=== PATIENT | male | born 1955 ===

== ENCOUNTER → 2020-12-07 09:44 | Outpatient (BNVA) | payer MEDICARE, MEDICAID, SELFPAY | PROVIDERS: PCP Physician Assistant Medical; Visit Provider Internal Medicine Pulmonary Disease | DX: J44.9 Chronic obstructive pulmonary disease, unspecified (principal); G47.33 Obstructive sleep apnea (adult) (pediatric); Z99.81 Dependence on supplemental oxygen | CPT/HCPCS: 99212 ==

== ENCOUNTER → 2021-04-12 09:56 | Outpatient (BNVA) | payer MEDICARE, MEDICAID, SELFPAY | PROVIDERS: PCP Physician Assistant Medical; Visit Provider Internal Medicine Pulmonary Disease | DX: G47.33 Obstructive sleep apnea (adult) (pediatric) (principal); J44.9 Chronic obstructive pulmonary disease, unspecified; Z99.81 Dependence on supplemental oxygen | CPT/HCPCS: 99212 ==

== ENCOUNTER → 2021-09-06 10:27 | Outpatient (BNVA) | payer MEDICARE, MEDICAID, SELFPAY | PROVIDERS: PCP Physician Assistant Medical; Visit Provider Internal Medicine Pulmonary Disease | DX: J44.9 Chronic obstructive pulmonary disease, unspecified (principal); G47.33 Obstructive sleep apnea (adult) (pediatric); Z99.81 Dependence on supplemental oxygen | CPT/HCPCS: 99212 ==

== ENCOUNTER → 2022-03-06 13:01 | Outpatient (BNVA) | payer MEDICARE, MEDICAID, SELFPAY | PROVIDERS: PCP Physician Assistant Medical; Visit Provider Internal Medicine Pulmonary Disease | DX: J44.9 Chronic obstructive pulmonary disease, unspecified (principal); G47.33 Obstructive sleep apnea (adult) (pediatric); Z99.81 Dependence on supplemental oxygen | CPT/HCPCS: 99212 ==

== ENCOUNTER 2022-10-21 09:21 | Emergency (ER) | payer MEDICARE, MEDICAID, SELFPAY ==
--- NOTE | ~2022-10-21 | US_ITS ---
EXAMINATION: US SCROTUM CLINICAL INFORMATION: Left testicular pain. COMPARISON: None available. TECHNIQUE: A sonogram of the scrotum was performed assessing galeana-scale appearance and color Doppler flow. Spectral Doppler analysis of the arterial and venous flow were performed in the testes bilaterally. FINDINGS: RIGHT: Right testicle measures 4.5 x 3 x 3.5 cm, volume 24.8 mL. No focal testicular parenchymal lesions are visualized. Spectral Doppler analysis of the arterial and venous flow is normal in the right testis. Right epididymal head is normal in size. Simple right epididymal head cysts measuring 0.5 and 0.4 cm. No right hydrocele or varicocele is seen. Right epididymal Doppler flow is normal. LEFT: Left testicle measures 4.8 x 2.7 x 3.4 cm, volume 23.3 mL. No focal testicular parenchymal lesions are visualized. Spectral Doppler analysis of the arterial and venous flow is normal in the left testis. Left epididymal head is normal in size. No left hydrocele or varicocele is seen. Left epididymal Doppler flow is normal. Significantly thickened and edematous scrotum without significantly increased Doppler detectable vascular flow. US/US scrotum IMPRESSION: 1. Significantly thickened and edematous scrotum without significantly increased Doppler detectable vascular flow. Findings are nonspecific and may represent an infectious or inflammatory process. 2. Simple right epididymal head cysts measuring 0.5 and 0.4 cm.
--- NOTE | ~2022-10-21 | US_ITS ---
EXAMINATION: US SCROTUM CLINICAL INFORMATION: Left testicular pain. COMPARISON: None available. TECHNIQUE: A sonogram of the scrotum was performed assessing galeana-scale appearance and color Doppler flow. Spectral Doppler analysis of the arterial and venous flow were performed in the testes bilaterally. FINDINGS: RIGHT: Right testicle measures 4.5 x 3 x 3.5 cm, volume 24.8 mL. No focal testicular parenchymal lesions are visualized. Spectral Doppler analysis of the arterial and venous flow is normal in the right testis. Right epididymal head is normal in size. Simple right epididymal head cysts measuring 0.5 and 0.4 cm. No right hydrocele or varicocele is seen. Right epididymal Doppler flow is normal. LEFT: Left testicle measures 4.8 x 2.7 x 3.4 cm, volume 23.3 mL. No focal testicular parenchymal lesions are visualized. Spectral Doppler analysis of the arterial and venous flow is normal in the left testis. Left epididymal head is normal in size. No left hydrocele or varicocele is seen. Left epididymal Doppler flow is normal. Significantly thickened and edematous scrotum without significantly increased Doppler detectable vascular flow. US/US scrotum doppler IMPRESSION: 1. Significantly thickened and edematous scrotum without significantly increased Doppler detectable vascular flow. Findings are nonspecific and may represent an infectious or inflammatory process. 2. Simple right epididymal head cysts measuring 0.5 and 0.4 cm.
--- NOTE | ~2022-10-21 | CT_ITS ---
EXAMINATION: CT ABDOMEN AND PELVIS WITH CONTRAST CLINICAL INFORMATION: Peroneal cellulitis, rule out necrotizing fasciitis COMPARISON: None available. TECHNIQUE: Multidetector volumetric images were obtained from the superior aspect of the liver through the pubic symphysis following administration 100 mL of Omnipaque 350 intravenous contrast. Sagittal and coronal reformatted images were obtained on the technologist's workstation. Oral contrast: No This CT examination was performed using dose optimization techniques as appropriate, variously including the following: *Automated exposure control *Adjustment of mA and/or kV according to patient size (this includes techniques or standardized protocols for targeted exams where dose is matched to indication/reason for exam; i.e. extremities or head) *Use of iterative reconstruction technique DLP: 2053 mGy-cm FINDINGS: LUNG BASES: The visualized lung bases are unremarkable. LIVER, GALLBLADDER, AND BILIARY TREE: Low attenuation lesion in the left lobe of liver. Unable to characterize study. Measures 1 cm. Gallstones in the gallbladder PANCREAS: There is some mild soft tissue stranding around the pancreatic head but I suspect this is due to the technique of the scan. No Suspicious fluid collection SPLEEN: Unremarkable. ADRENAL GLANDS: Unremarkable. KIDNEYS AND URETERS: The kidneys are normal in size, shape, and attenuation. No hydronephrosis, hydroureter, or calculi seen. No perinephric stranding. BLADDER: Unremarkable. GASTROINTESTINAL TRACT: The bowel pattern is felt to be nonobstructing. The appendix is within normal limits. ABDOMINAL WALL: No significant hernia is appreciated. LYMPH NODES: Normal. VASCULAR: Unremarkable. PELVIC VISCERA: Unremarkable. OSSEOUS STRUCTURES: Degenerative changes in the spine. No acute compression injury. No obvious lesion. CT/CT abdomen pelvis w IV con IMPRESSION: Inferior most cut is to the region of the rectum and may not include the area in question, the perineum in this large patient. Findings are described above. No acute finding in the abdomen pelvis. Other findings are as described above Fleischner guidelines were followed.
[2022-10-21 09:26] VITALS: BP 150/70; PULSE 82; RESP 16; TEMP 36.4; O2SAT 97; BMI 63.2
[2022-10-21 09:50] LABS: MANUAL DIFF FLAG NO
[2022-10-21 09:53] LABS: Basophils Percent Auto 0.3 % (0-2); Eosinophils Absolute Auto 0.3 X10*3/uL (0.0-0.4); Eosinophils Percent Auto 2.1 % (0-4); Hematocrit 40.2 % (42.0-52.0); Hemoglobin 12.3 g/dl (14.0-18.0); Imm Gran Abs Auto 0.09 X10*3/uL (0.00-0.03); Imm Gran Pct Auto 0.7 % (0.0-0.4); Lymphocytes Absolute Auto 1.9 X10*3/uL (1.2-4.9); Lymphocytes Percent Auto 15.9 % (20-40); Mean Corpuscular HGB Conc 30.6 g/dl (31.0-36.0); Mean Corpuscular Hemoglobin 24.7 pg (27.0-33.0); Mean Corpuscular Volume 80.7 fL (80.0-98.0); Mean Platelet Volume 8.8 fL (9.4-12.4); Monocytes Absolute Auto 0.7 X10*3/uL (0.1-1.2); Neutrophils Absolute Auto 9.1 x10*3/uL (2.0-8.3); Platelet Count 301 X10*3/uL (160-400); Red Blood Count 4.98 X10*6/uL (4.60-5.80); Red Cell Distribution Width 17.2 % (11.0-16.0); White Blood Count 12.2 X10*3/uL (4.8-10.8)
[2022-10-21 10:10] LABS: Anion Gap 14 (12-20); Blood Urea Nitrogen 21 mg/dL (9-16); Calcium 9.2 mg/dL (8.4-10.2); Carbon Dioxide 29 mmol/L (22-29); Chloride 102 mmol/L (96-108); Creatinine Clr Calc Pharmacy 138.8; Estimated Glomerular Filt Rate > 60; Glucose Random 139 mg/dL (60-115); Potassium 3.9 mmol/L (3.3-5.1); Sodium 141 mmol/L (135-145)
--- NOTE | 2022-10-21 10:20 | PC.NURSE ---
Patient was sitting on a bench when two of the wood pieces came together and pinch his scrotum, patient scrotum swollen at this time but patient denies pain to the area.
--- NOTE | 2022-10-21 10:24 | ED_ITS ---
HPI - Male Genitourinary General Chief complaint: Urogenital-Male Stated complaint: testicle inj Time Seen by Provider: 10/21/22 10:01 Source: patient Mode of arrival: ambulatory Limitations: no limitations History of Present Illness HPI Narrative: 67-year-old male came in for evaluation of swelling of the testicle. Patient was sitting on the front bench with the loose wood board hit his testicle when he is trying to seat. Complaining of swelling of the testicle, no pain. Related Data Home Medications Medication Instructions Recorded Confirmed albuterol sulfate 2.5 mg/3 mL mg inhalation 04/12/21 (0.083 %) solution for nebulization atorvastatin 40 mg tablet 40 mg PO DAILY 04/12/21 blood sugar diagnostic (FreeStyle #10 ea 04/12/21 Lite Strips) diltiazem HCl 300 mg 300 mg PO DAILY 04/12/21 capsule,extended release 24 hr flecainide 150 mg tablet 150 mg PO BID 04/12/21 glipizide 10 mg tablet, extended 10 mg PO DAILY 04/12/21 release 24 hr hydralazine 25 mg tablet 25 mg PO TID 04/12/21 insulin aspart U-100 100 unit/mL subcut 04/12/21 (3 mL) subcutaneous pen (Novolog FlexPen U-100 Insulin aspart) insulin glargine 100 unit/mL (3 unit subcut 04/12/21 mL) subcutaneous pen (Basaglar KwikPen U-100 Insulin) lancets 28 gauge (FreeStyle #100 ea 04/12/21 Lancets) metformin 850 mg tablet 850 mg PO TID 04/12/21 pantoprazole 40 mg tablet,delayed 40 mg PO DAILY 04/12/21 release pen needle, diabetic 31 gauge x #1,200 ea 04/12/2109/12 (BD Ultra-Fine Short Pen Needle) pregabalin 150 mg capsule 150 mg PO BID 04/12/21 valsartan 160 mg tablet 160 mg PO DAILY 04/12/21 valsartan 320 mg tablet 320 mg PO DAILY 04/12/21 empagliflozin 10 mg tablet 10 mg PO DAILY 03/06/22 (Jardiance) magnesium oxide 400 mg (241.3 mg 400 mg PO BID 03/06/22 magnesium) tablet Previous Rx's Medication Instructions Recorded Ventolin HFA 90 mcg/actuation 2 puff inhalation Q6H PRN 12/07/20 aerosol inhaler (albuterol sulfate) shortness of breath or wheezing #3 ea furosemide 40 mg tablet (Lasix) 40 mg PO BID 30 days #60 tabs 12/07/20 Breo Ellipta 100 mcg-25 mcg/dose 1 ea inhalation DAILY #1 ea 04/11/21 powder for inhalation (fluticasone furoate-vilanterol) doxycycline monohydrate 100 mg 100 mg PO BID #20 caps 10/21/22 capsule Allergies Allergy/AdvReac Type Severity Reaction Status Date / Time ipratropium Allergy Unknown Unknown Verified 03/06/22 13:10 dogs Allergy Unknown Unknown Uncoded 12/07/20 10:01 Review of Systems Review of Systems: All other systems are reviewed and are negative Constitutional: Reports as per HPI and Reports no additional constitutional complaints Eyes: Reports as per HPI and Reports no additional eye complaints Reports system reviewed and no additional complaints, except as documented Cardiovascular: Reports as per HPI and Reports no additional cardiovascular complaints Respiratory: Reports as per HPI and Reports no additional respiratory complaints Gastrointestinal: Reports as per HPI and Reports no additional gastrointestinal complaints Genitourinary: Reports no additional female genitourinary complaints Musculoskeletal: Reports no additional musculoskeletal complaints Skin/Breast: Reports system reviewed and no additional complaints, except as docu Psychiatric: Reports no additional psychiatric complaints Endocrine: Reports no additional endocrine complaints Hematologic/Lymphatic: Reports no additional hematologic/lymphatic complaints Allergic/Immunologic: Reports no additional allergic/immunologic complaints Reports system reviewed and no additional complaints, except as documented and Reports Abnormal speech present [facility] Social History Social History Alcohol intake: never Smoked in Last 30 Days: No Use of substances other than those prescribed or required for medical reasons: No Advance Directives: No Advance Directives Information Provided: No Physical Exam Vital Signs: Vital Signs: Last Vital Signs Temp 98.2 F 10/21/22 15:55 Pulse 69 10/21/22 15:55 Resp 16 10/21/22 15:55 BP 143/80 H 10/21/22 15:55 Pulse Ox 97 10/21/22 15:55 O2 Del Method Nasal Cannula 10/21/22 15:55 O2 Flow Rate 2 10/21/22 15:55 Oxygen Flow Rate 2 10/21/22 09:26 BMI result Body Mass Index 63.2 Vital signs have been reviewed as appeared to be correct. Blood pressure normal. Heart rate normal. Respiration rate normal. Temperature normal. Oxygen saturation normal. Appearance: Alert. Oriented X3. No acute distress. Head: Normal external exam. Normocephalic. Atraumatic. No Sadler signs noted. No raccoon eyes noted Eyes: PERRLA. EOMI. Conjunctiva and sclera normal. Eyelids normal. ENT: TM's Normal. Pharynx normal. Uvula midline. Moist mucous membranes. No trismus noted. No drooling noted. No muffled voice noted. Neck: Normal inspection. Neck supple. FROM. No adenopathy. Thyroid Normal. No meningeal signs. No neck mass noted. CVS: Normal heart rate and rhythm. Heart sound normal. No murmurs noted. Pulses normal throughout. Respiratory: No respiratory distress. Painless inspiration. Breath sounds normal. No wheezes/rales/rhonchi noted. Chest nontender. No accessory muscle usage noted or decreased air movement noted. Abdomen: Soft and nontender. Bowel sounds normal in all 4 quadrants. No distention noted. No organomegaly noted. No visible injury noted. : Swelling of the scrotum, no testicular tenderness. No cellulitis to the perineal area. Back: No CVA tenderness. Full range of motion noted. Skin: Skin warm and dry. Normal skin color. Normal skin turgor. No rashes/lesions/lacerations noted. Extremities: No lower extremity edema. Extremities exhibit normal range of motion. Extremities nontender. Neuro: Oriented X 3. Cranial nerve exam: II-XII are grossly intact No motor deficit. No sensory deficit. Reflexes normal. Course Reevaluation(s) Reevaluation #1: Redness and swelling of the scrotum after trauma to the scrotum, possible infected hematoma and cellulitis, LRINEC score is 4 will start the patient on doxycycline. Time: 15:16 Medications Administered Discontinued Medications Generic Name Dose Route Start Last Admin Trade Name Freq PRN Reason Stop Dose Admin Sodium Chloride 1,000 mls @ 999 mls/hr 10/21/22 12:46 10/21/22 13:33 Ns IV 10/21/22 13:46 999 mls/hr .Q1H1M ONE Administration Levofloxacin 750 mg in 150 mls @ 100 mls/hr 10/21/22 12:50 10/21/22 13:31 Levaquin IV 10/21/22 14:19 100 mls/hr ONCE ONE Administration Iohexol 100 ml 10/21/22 14:02 10/21/22 14:02 Iohexol 350 Mg/Ml 100 Ml Infus..Btl IV 10/21/22 14:03 100 ml ONCE ONE Administration Medical Decision Making Differential Diagnosis Differential Diagnoses: The differential diagnosis associated with the presentation includes (Scrotal cellulitis, scrotal hematoma, Cuca's gangrene, scrotal abscess, electrolytes abnormalities, severe anemia.) Admission/Observation Consideration of admission/observation: Escalation of care including admission/observation considered Lab Data MDM Lab Attestation statement: I reviewed the patient's lab results. 10/21/22 09:45 10/21/22 09:46 Labs: Lab Results 10/21/22 10/21/22 10/21/22 Range/Units 09:45 09:46 12:14 WBC 12.2 H (4.8-10.8) X10*3/uL RBC 4.98 (4.60-5.80) X10*6/uL Hgb 12.3 L (14.0-18.0) g/dl Hct 40.2 L (42.0-52.0) % MCV 80.7 (80.0-98.0) fL MCH 24.7 L (27.0-33.0) pg MCHC 30.6 L (31.0-36.0) g/dl RDW 17.2 H (11.0-16.0) % Plt Count 301 (160-400) X10*3/uL MPV 8.8 L (9.4-12.4) fL Immature Gran % (Auto) 0.7 H (0.0-0.4) % Neut % (Auto) 75.0 H (45-73) % Lymph % (Auto) 15.9 L (20-40) % Crawford % (Auto) 6.0 (2-11) % Eos % (Auto) 2.1 (0-4) % Baso % (Auto) 0.3 (0-2) % Lymph # (Auto) 1.9 (1.2-4.9) X10*3/uL Crawford # (Auto) 0.7 (0.1-1.2) X10*3/uL Eos # (Auto) 0.3 (0.0-0.4) X10*3/uL Baso # (Auto) 0.0 (0.0-0.2) X10*3/uL Abs Immat Gran (auto) 0.09 H (0.00-0.03) X10*3/uL Absolute Neuts (auto) 9.1 H (2.0-8.3) x10*3/uL Absolute Nucleated RBC 0.000 (0.0-0.012) X10*3/uL Nucleated RBC % (auto) 0.0 (0.0-0.2) /100WBC Sodium 141 (135-145) mmol/L Potassium 3.9 (3.3-5.1) mmol/L Chloride 102 (96-108) mmol/L Carbon Dioxide 29 (22-29) mmol/L Anion Gap 14 (12-20) BUN 21 H (9-16) mg/dL Creatinine 0.85 (0.5-1.4) mg/dL Estim Creat Clear Calc 138.8 Estimated GFR > 60 Random Glucose 139 H (60-115) mg/dL Lactic Acid (0.5-2.0) mmol/L Calcium 9.2 (8.4-10.2) mg/dL C-Reactive Protein 4.77 H (< or = 0.50) mg/dL Urine Color Yellow Urine Appearance Cloudy Urine pH >= 9.0 (5.0-9.0) Ur Specific [place] >= 1.030 H (1.005-1.025) Urine Protein 30 (1+) H (Neg-Trace) mg/dL Urine Glucose (UA) 500 H (Negative) mg/dL Urine Ketones Negative (Negative) mg/dL Urine Blood Negative (Negative) Urine Nitrite Positive H (Negative) Ur Leukocyte Esterase Moderate (2+) H (Negative) Urine RBC 0-2 (0-2) /HPF Urine WBC 21-50 H (0-5) /HPF Ur Squamous Epith Cells 0-2 (0-2) /HPF Urine Bacteria 4+ (None Seen) Hyaline Casts 3-5 (0-2) /LPF 10/21/22 Range/Units 13:18 WBC (4.8-10.8) X10*3/uL RBC (4.60-5.80) X10*6/uL Hgb (14.0-18.0) g/dl Hct (42.0-52.0) % MCV (80.0-98.0) fL MCH (27.0-33.0) pg MCHC (31.0-36.0) g/dl RDW (11.0-16.0) % Plt Count (160-400) X10*3/uL MPV (9.4-12.4) fL Immature Gran % (Auto) (0.0-0.4) % Neut % (Auto) (45-73) % Lymph % (Auto) (20-40) % Crawford % (Auto) (2-11) % Eos % (Auto) (0-4) % Baso % (Auto) (0-2) % Lymph # (Auto) (1.2-4.9) X10*3/uL Crawford # (Auto) (0.1-1.2) X10*3/uL Eos # (Auto) (0.0-0.4) X10*3/uL Baso # (Auto) (0.0-0.2) X10*3/uL Abs Immat Gran (auto) (0.00-0.03) X10*3/uL Absolute Neuts (auto) (2.0-8.3) x10*3/uL Absolute Nucleated RBC (0.0-0.012) X10*3/uL Nucleated RBC % (auto) (0.0-0.2) /100WBC Sodium (135-145) mmol/L Potassium (3.3-5.1) mmol/L Chloride (96-108) mmol/L Carbon Dioxide (22-29) mmol/L Anion Gap (12-20) BUN (9-16) mg/dL Creatinine (0.5-1.4) mg/dL Estim Creat Clear Calc Estimated GFR Random Glucose (60-115) mg/dL Lactic Acid 0.9 (0.5-2.0) mmol/L Calcium (8.4-10.2) mg/dL C-Reactive Protein (< or = 0.50) mg/dL Urine Color Urine Appearance Urine pH (5.0-9.0) Ur Specific [place] (1.005-1.025) Urine Protein (Neg-Trace) mg/dL Urine Glucose (UA) (Negative) mg/dL Urine Ketones (Negative) mg/dL Urine Blood (Negative) Urine Nitrite (Negative) Ur Leukocyte Esterase (Negative) Urine RBC (0-2) /HPF Urine WBC (0-5) /HPF Ur Squamous Epith Cells (0-2) /HPF Urine Bacteria (None Seen) Hyaline Casts (0-2) /LPF Independent Interpretation I performed an independent interpretation of an: CT Scan (Abdomen and pelvis: No acute pathology.) Radiology Impression Discussion of test interpretation with radiology: I have reviewed the radiologist's reading. Discharge Plan Discharge Clinical Impression: Cellulitis Patient Disposition: Home, Self-Care Instructions: Cellulitis (ED) Prescriptions: New doxycycline monohydrate 100 mg capsule 100 mg PO BID Qty: 20 0RF No Action Breo Ellipta 100-25 mcg/dose blister with device 1 ea inhalation DAILY Qty: 1 3RF furosemide [Lasix] 40 mg tablet 40 mg PO BID 30 Days Qty: 60 6RF albuterol sulfate [Ventolin HFA] 90 mcg/actuation HFA aerosol inhaler 2 puff inhalation Q6H PRN (Reason: shortness of breath or wheezing) Qty: 3 1RF flecainide 150 mg tablet 150 mg PO BID pantoprazole 40 mg tablet,delayed release (DR/EC) 40 mg PO DAILY Basaglar KwikPen U-100 Insulin 100 unit/mL (3 mL) insulin pen subcut valsartan 320 mg tablet 320 mg PO DAILY pregabalin 150 mg capsule 150 mg PO BID glipizide 10 mg tablet extended release 24hr 10 mg PO DAILY (DME) lancets [FreeStyle Lancets] 28 gauge misc See Rx Instructions topical TID Qty: 100 Rx Instructions: As directed diltiazem HCl 300 mg capsule,extended release 24hr 300 mg PO DAILY (DME) FreeStyle Lite Strips Strip See Rx Instructions Not Applicable TID Qty: 10 Rx Instructions: As directed hydralazine 25 mg tablet 25 mg PO TID metformin 850 mg tablet 850 mg PO TID atorvastatin 40 mg tablet 40 mg PO DAILY insulin aspart U-100 [Novolog FlexPen U-100 Insulin] 100 unit/mL (3 mL) insulin pen subcut (DME) pen needle, diabetic [BD Ultra-Fine Short Pen Needle] 31 gauge x 5/16 needle See Rx Instructions subcut .MEDSUPPLY Qty: 1200 Rx Instructions: As directed albuterol sulfate 2.5 mg /3 mL (0.083 %) solution for nebulization inhalation valsartan 160 mg tablet 160 mg PO DAILY magnesium oxide 400 mg (241.3 mg magnesium) tablet 400 mg PO BID Jardiance 10 mg tablet 10 mg PO DAILY Referrals: Jm Roca PA [Primary Care Provider] -
[2022-10-21 12:22] LABS: Appearance Urine Cloudy; Color Urine Yellow; Glucose Urine UA 500 mg/dL (Negative); Leukocyte Esterase Urine Moderate (2+) (Negative); Nitrite Urine Positive (Negative); PH >= 9.0 (5.0-9.0); Specific Gravity - Urine >= 1.030 (1.005-1.025); UMIC TRIGGER UACC YES; Urine Blood Negative (Negative); Urine Ketones Negative (Negative); Urine Protein 30 (1+) mg/dL (Neg-Trace)
[2022-10-21 12:24] LABS: Bacteria Urine 4+ (None Seen); RBC Urine 0-2 /HPF (0-2); Squamous Epithelial Cell Urine 0-2 /HPF (0-2); UACC Culture Trigger YES; WBC Urine 21-50 /HPF (0-5)
[2022-10-21] MEDS: levoFLOXacin/D5W 750 MG/150 ML PIGGYBACK 100 MG IV (13:31)
[2022-10-21] MEDS: 0.9 % Sodium Chloride 1,000 ML 999 ML IV ×2 (13:33→16:06)
[2022-10-21 13:34] LABS: Lactic Acid 0.9 mmol/L (0.5-2.0)
--- NOTE | 2022-10-21 13:45 | PC.NURSE ---
Patient went to CT, able to ambulate independently accompanied by janitorial tech.
[2022-10-21] MEDS: iohexoL 350 MG/ML 100 ML INFUS..BTL IV (14:02)
[2022-10-21 14:51] VITALS: BP 149/77; PULSE 64; RESP 20; TEMP 36.5; O2SAT 97
[2022-10-21 15:51] LABS: C Reactive Protein 4.77 mg/dL (< or = 0.50)
[2022-10-21 15:55] VITALS: BP 143/80; PULSE 69; RESP 16; TEMP 36.8; O2SAT 97
--- NOTE | 2022-10-21 15:56 | MHC.EDTECH ---
THIS PCT ASSUMED CARE OF PT AT 1500 ,VITALS SIGN TAKEN PT SITTING UP AT THE SIDE OF BED ,NO ISSUES .
[2022-10-21] MEDS: Doxycycline Monohydrate 100 MG CAPSULE PO (16:17)
--- NOTE | 2022-10-21 16:22 | PC.NURSE ---
Provider okay'ed patient note getting full dose of IV fluids.
--- NOTE | 2022-10-25 09:58 | ED_ITS ---
HPI - Male Genitourinary General Chief complaint: Urogenital-Male Stated complaint: testicle inj Time Seen by Provider: 10/21/22 10:01 Source: patient Mode of arrival: ambulatory Limitations: no limitations Related Data Home Medications Medication Instructions Recorded Confirmed albuterol sulfate 2.5 mg/3 mL mg inhalation 04/12/21 (0.083 %) solution for nebulization atorvastatin 40 mg tablet 40 mg PO DAILY 04/12/21 blood sugar diagnostic (FreeStyle #10 ea 04/12/21 Lite Strips) diltiazem HCl 300 mg 300 mg PO DAILY 04/12/21 capsule,extended release 24 hr flecainide 150 mg tablet 150 mg PO BID 04/12/21 glipizide 10 mg tablet, extended 10 mg PO DAILY 04/12/21 release 24 hr hydralazine 25 mg tablet 25 mg PO TID 04/12/21 insulin aspart U-100 100 unit/mL subcut 04/12/21 (3 mL) subcutaneous pen (Novolog FlexPen U-100 Insulin aspart) insulin glargine 100 unit/mL (3 unit subcut 04/12/21 mL) subcutaneous pen (Basaglar KwikPen U-100 Insulin) lancets 28 gauge (FreeStyle #100 ea 04/12/21 Lancets) metformin 850 mg tablet 850 mg PO TID 04/12/21 pantoprazole 40 mg tablet,delayed 40 mg PO DAILY 04/12/21 release pen needle, diabetic 31 gauge x #1,200 ea 04/12/21 5/16 (BD Ultra-Fine Short Pen Needle) pregabalin 150 mg capsule 150 mg PO BID 04/12/21 valsartan 160 mg tablet 160 mg PO DAILY 04/12/21 valsartan 320 mg tablet 320 mg PO DAILY 04/12/21 empagliflozin 10 mg tablet 10 mg PO DAILY 03/06/22 (Jardiance) magnesium oxide 400 mg (241.3 mg 400 mg PO BID 03/06/22 magnesium) tablet Previous Rx's Medication Instructions Recorded Ventolin HFA 90 mcg/actuation 2 puff inhalation Q6H PRN 12/07/20 aerosol inhaler (albuterol sulfate) shortness of breath or wheezing #3 ea furosemide 40 mg tablet (Lasix) 40 mg PO BID 30 days #60 tabs 12/07/20 Breo Ellipta 100 mcg-25 mcg/dose 1 ea inhalation DAILY #1 ea 04/11/21 powder for inhalation (fluticasone furoate-vilanterol) doxycycline monohydrate 100 mg 100 mg PO BID #20 caps 10/21/22 capsule cephalexin 500 mg tablet 500 mg PO Q6H 10 days #40 tabs 10/25/22 Allergies Allergy/AdvReac Type Severity Reaction Status Date / Time ipratropium Allergy Unknown Unknown Verified 03/06/22 13:10 dogs Allergy Unknown Unknown Uncoded 12/07/20 10:01 [facility] Social History Social History Alcohol intake: never Smoked in Last 30 Days: No Use of substances other than those prescribed or required for medical reasons: No Advance Directives: No Advance Directives Information Provided: No Physical Exam Vital Signs: Vital Signs: Last Vital Signs Temp 98.2 F 10/21/22 15:55 Pulse 69 10/21/22 15:55 Resp 16 10/21/22 15:55 BP 143/80 H 10/21/22 15:55 Pulse Ox 97 10/21/22 15:55 O2 Del Method Nasal Cannula 10/21/22 15:55 O2 Flow Rate 2 10/21/22 15:55 Oxygen Flow Rate 2 10/21/22 09:26 BMI result Body Mass Index 63.2 Course Reevaluation(s) Reevaluation #1: Positive culture her susceptible to Keflex, patient on doxycycline, sent Keflex to patient's pharmacy, spoke to patient on the phone he tells me that his testicular redness, pain and swelling has not improved despite antibiotics encouraged him to come in for IV antibiotics. Medications Administered Discontinued Medications Generic Name Dose Route Start Last Admin Trade Name Freq PRN Reason Stop Dose Admin Doxycycline Monohydrate 100 mg 10/21/22 16:06 10/21/22 16:17 Doxycycline Monohydrate 100 Mg Capsule PO 10/21/22 16:07 100 mg ONCE ONE Administration Sodium Chloride 1,000 mls @ 999 mls/hr 10/21/22 12:46 10/21/22 16:05 Ns IV 10/21/22 13:46 Infused .Q1H1M ONE Infusion Sodium Chloride 1,000 mls @ 999 mls/hr 10/21/22 12:50 10/21/22 16:21 Ns IV 10/21/22 13:50 0 mls/hr .Q1H1M ONE Infusion Levofloxacin 750 mg in 150 mls @ 100 mls/hr 10/21/22 12:50 10/21/22 16:06 Levaquin IV 10/21/22 14:19 Infused ONCE ONE Infusion Iohexol 100 ml 10/21/22 14:02 10/21/22 14:02 Iohexol 350 Mg/Ml 100 Ml Infus..Btl IV 10/21/22 14:03 100 ml ONCE ONE Administration Medical Decision Making Lab Data 10/21/22 09:45 10/21/22 09:46 Labs: Lab Results 10/21/22 10/21/22 10/21/22 Range/Units 09:45 09:46 12:14 WBC 12.2 H (4.8-10.8) X10*3/uL RBC 4.98 (4.60-5.80) X10*6/uL Hgb 12.3 L (14.0-18.0) g/dl Hct 40.2 L (42.0-52.0) % MCV 80.7 (80.0-98.0) fL MCH 24.7 L (27.0-33.0) pg MCHC 30.6 L (31.0-36.0) g/dl RDW 17.2 H (11.0-16.0) % Plt Count 301 (160-400) X10*3/uL MPV 8.8 L (9.4-12.4) fL Immature Gran % (Auto) 0.7 H (0.0-0.4) % Neut % (Auto) 75.0 H (45-73) % Lymph % (Auto) 15.9 L (20-40) % [place] % (Auto) 6.0 (2-11) % Eos % (Auto) 2.1 (0-4) % Baso % (Auto) 0.3 (0-2) % Lymph # (Auto) 1.9 (1.2-4.9) X10*3/uL [place] # (Auto) 0.7 (0.1-1.2) X10*3/uL Eos # (Auto) 0.3 (0.0-0.4) X10*3/uL Baso # (Auto) 0.0 (0.0-0.2) X10*3/uL Abs Immat Gran (auto) 0.09 H (0.00-0.03) X10*3/uL Absolute Neuts (auto) 9.1 H (2.0-8.3) x10*3/uL Absolute Nucleated RBC 0.000 (0.0-0.012) X10*3/uL Nucleated RBC % (auto) 0.0 (0.0-0.2) /100WBC Sodium 141 (135-145) mmol/L Potassium 3.9 (3.3-5.1) mmol/L Chloride 102 (96-108) mmol/L Carbon Dioxide 29 (22-29) mmol/L Anion Gap 14 (12-20) BUN 21 H (9-16) mg/dL Creatinine 0.85 (0.5-1.4) mg/dL Estim Creat Clear Calc 138.8 Estimated GFR > 60 Random Glucose 139 H (60-115) mg/dL Lactic Acid (0.5-2.0) mmol/L Calcium 9.2 (8.4-10.2) mg/dL C-Reactive Protein 4.77 H (< or = 0.50) mg/dL Urine Color Yellow Urine Appearance Cloudy Urine pH >= 9.0 (5.0-9.0) Ur Specific [place] >= 1.030 H (1.005-1.025) Urine Protein 30 (1+) H (Neg-Trace) mg/dL Urine Glucose (UA) 500 H (Negative) mg/dL Urine Ketones Negative (Negative) mg/dL Urine Blood Negative (Negative) Urine Nitrite Positive H (Negative) Ur Leukocyte Esterase Moderate (2+) H (Negative) Urine RBC 0-2 (0-2) /HPF Urine WBC 21-50 H (0-5) /HPF Ur Squamous Epith Cells 0-2 (0-2) /HPF Urine Bacteria 4+ (None Seen) Hyaline Casts 3-5 (0-2) /LPF // Range/Units 13:18 WBC (4.8-10.8) X10*3/uL RBC (4.60-5.80) X10*6/uL Hgb (14.0-18.0) g/dl Hct (42.0-52.0) % MCV (80.0-98.0) fL MCH (27.0-33.0) pg MCHC (31.0-36.0) g/dl RDW (11.0-16.0) % Plt Count (160-400) X10*3/uL MPV (9.4-12.4) fL Immature Gran % (Auto) (0.0-0.4) % Neut % (Auto) (45-73) % Lymph % (Auto) (20-40) % [place] % (Auto) (2-11) % Eos % (Auto) (0-4) % Baso % (Auto) (0-2) % Lymph # (Auto) (1.2-4.9) X10*3/uL [place] # (Auto) (0.1-1.2) X10*3/uL Eos # (Auto) (0.0-0.4) X10*3/uL Baso # (Auto) (0.0-0.2) X10*3/uL Abs Immat Gran (auto) (0.00-0.03) X10*3/uL Absolute Neuts (auto) (2.0-8.3) x10*3/uL Absolute Nucleated RBC (0.0-0.012) X10*3/uL Nucleated RBC % (auto) (0.0-0.2) /100WBC Sodium (135-145) mmol/L Potassium (3.3-5.1) mmol/L Chloride (96-108) mmol/L Carbon Dioxide (22-29) mmol/L Anion Gap (12-20) BUN (9-16) mg/dL Creatinine (0.5-1.4) mg/dL Estim Creat Clear Calc Estimated GFR Random Glucose (60-115) mg/dL Lactic Acid 0.9 (0.5-2.0) mmol/L Calcium (8.4-10.2) mg/dL C-Reactive Protein (< or = 0.50) mg/dL Urine Color Urine Appearance Urine pH (5.0-9.0) Ur Specific [place] (1.005-1.025) Urine Protein (Neg-Trace) mg/dL Urine Glucose (UA) (Negative) mg/dL Urine Ketones (Negative) mg/dL Urine Blood (Negative) Urine Nitrite (Negative) Ur Leukocyte Esterase (Negative) Urine RBC (0-2) /HPF Urine WBC (0-5) /HPF Ur Squamous Epith Cells (0-2) /HPF Urine Bacteria (None Seen) Hyaline Casts (0-2) /LPF Discharge Plan Discharge Clinical Impression: Cellulitis Patient Disposition: Home, Self-Care Instructions: Cellulitis (ED) Prescriptions: New doxycycline monohydrate 100 mg capsule 100 mg PO BID Qty: 20 0RF cephalexin 500 mg tablet 500 mg PO Q6H 10 Days Qty: 40 0RF No Action Breo Ellipta 100-25 mcg/dose blister with device 1 ea inhalation DAILY Qty: 1 3RF furosemide [Lasix] 40 mg tablet 40 mg PO BID 30 Days Qty: 60 6RF albuterol sulfate [Ventolin HFA] 90 mcg/actuation HFA aerosol inhaler 2 puff inhalation Q6H PRN (Reason: shortness of breath or wheezing) Qty: 3 1RF flecainide 150 mg tablet 150 mg PO BID pantoprazole 40 mg tablet,delayed release (DR/EC) 40 mg PO DAILY Basaglar KwikPen U-100 Insulin 100 unit/mL (3 mL) insulin pen subcut valsartan 320 mg tablet 320 mg PO DAILY pregabalin 150 mg capsule 150 mg PO BID glipizide 10 mg tablet extended release 24hr 10 mg PO DAILY (DME) lancets [FreeStyle Lancets] 28 gauge misc See Rx Instructions topical TID Qty: 100 Rx Instructions: As directed diltiazem HCl 300 mg capsule,extended release 24hr 300 mg PO DAILY (DME) FreeStyle Lite Strips Strip See Rx Instructions Not Applicable TID Qty: 10 Rx Instructions: As directed hydralazine 25 mg tablet 25 mg PO TID metformin 850 mg tablet 850 mg PO TID atorvastatin 40 mg tablet 40 mg PO DAILY insulin aspart U-100 [Novolog FlexPen U-100 Insulin] 100 unit/mL (3 mL) insulin pen subcut (DME) pen needle, diabetic [BD Ultra-Fine Short Pen Needle] 31 gauge x 5/16 needle See Rx Instructions subcut .MEDSUPPLY Qty: 1200 Rx Instructions: As directed albuterol sulfate 2.5 mg /3 mL (0.083 %) solution for nebulization inhalation valsartan 160 mg tablet 160 mg PO DAILY magnesium oxide 400 mg (241.3 mg magnesium) tablet 400 mg PO BID Jardiance 10 mg tablet 10 mg PO DAILY Referrals: Jm Roca PA [Primary Care Provider] - Interventions: ED Discharge Assessment Last Done: 10/21/22 16:22 Discharge Date/Time: 10/21/22 16:23
== END 2022-10-21 16:23 | disposition home or self-care (01) ==
PROVIDERS: Emergency Provider Emergency Medicine; PCP Physician Assistant Medical
DX: N49.2 Inflammatory disorders of scrotum (principal); N50.812 Left testicular pain; N50.811 Right testicular pain; N39.0 Urinary tract infection, site not specified; B96.4 Proteus (mirabilis) (morganii) as the cause of diseases classified elsewhere
CPT/HCPCS: 36415; 74177; 76870; 80048; 81001; 83605; 85025; 86140; 87040; 87086; 87088; 87186; 93975; 96361; 96365; 99284; J1956; Q9967

== ENCOUNTER 2022-10-28 06:58 | Inpatient (IN) | payer MEDICARE, MEDICAID, SELFPAY ==
[2022-10-28 07:16] VITALS: BP 128/59; PULSE 95; RESP 20; TEMP 37; O2SAT 97; BMI 61.7
--- NOTE | 2022-10-28 07:18 | ED.GENADULT ---
HPI - General Adult General Chief complaint: General Medical Stated complaint: cellulitis, uti Time Seen by Provider: 10/28/22 07:15 Source: patient, RN notes reviewed and old records reviewed Mode of arrival: ambulatory History of Present Illness HPI narrative: 67-year-old male with a past medical history of RITA on CPAP, COPD on 2 L NC baseline, DM, scrotal cellulitis currently being treated with Doxycycline and Keflex since 10/21/2022, presenting to the ED complaining of persistent/worsening scrotal swelling and erythema. Reports compliance with previously prescribed antibiotics. Patient was evaluated in our ED on 10/21 and 10/25 for similar symptoms, had labs, scrotal ultrasound, and CT scan. States was instructed by his VNA to return to the ED for IV antibiotics. Reports difficulty urinating secondary to swelling. Denies fever, chills, drainage from area, abdominal pain Onset (ago): week(s) Related Data Home Medications Medication Instructions Recorded Confirmed albuterol sulfate 2.5 mg/3 mL 2.5 mg inhalation Q6H PRN 04/12/21 10/28/22 (0.083 %) solution for nebulization Shortness Of Breath Or Wheezing atorvastatin 40 mg tablet 40 mg PO BEDTIME 04/12/21 10/28/22 blood sugar diagnostic (FreeStyle #10 ea 04/12/21 Lite Strips) diltiazem HCl 300 mg 300 mg PO DAILY 04/12/21 10/28/22 capsule,extended release 24 hr glipizide 10 mg tablet, extended 10 mg PO DAILY 04/12/21 10/28/22 release 24 hr hydralazine 25 mg tablet 25 mg PO TID 04/12/21 10/28/22 insulin aspart U-100 100 unit/mL 1 sliding scale dose subcut TIDAC 04/12/21 10/28/22 (3 mL) subcutaneous pen (Novolog FlexPen U-100 Insulin aspart) insulin glargine 100 unit/mL (3 64 unit subcut BID 04/12/21 10/28/22 mL) subcutaneous pen (Basaglar KwikPen U-100 Insulin) lancets 28 gauge (FreeStyle #100 ea 04/12/21 Lancets) metformin 850 mg tablet 850 mg PO TID 04/12/21 10/28/22 pantoprazole 40 mg tablet,delayed 40 mg PO DAILY@0630 04/12/21 10/28/22 release pen needle, diabetic 31 gauge x #1,200 ea 04/12/2109/12 (BD Ultra-Fine Short Pen Needle) pregabalin 150 mg capsule 150 mg PO BID 04/12/21 10/28/22 valsartan 320 mg tablet 320 mg PO DAILY 04/12/21 10/28/22 empagliflozin 10 mg tablet 10 mg PO DAILY 03/06/22 10/28/22 (Jardiance) furosemide 40 mg tablet (Lasix) 40 mg PO BID@0900,1700 10/28/22 10/28/22 magnesium oxide 400 mg PO DAILY 10/28/22 10/28/22 sitagliptin phosphate 25 mg tablet 25 mg PO DAILY 10/28/22 10/28/22 (Januvia) Previous Rx's Medication Instructions Recorded doxycycline monohydrate 100 mg 100 mg PO BID #20 caps 10/21/22 capsule cephalexin 500 mg tablet 500 mg PO Q6H 10 days #40 tabs 10/25/22 Allergies Allergy/AdvReac Type Severity Reaction Status Date / Time ipratropium Allergy Unknown Unknown Verified 10/28/22 07:27 Review of Systems Review of Systems: Constitutional: No Fever, No Chills, No Fatigue, No Malaise ENT/Mouth: No Ear Pain, No Nasal Congestion, No Hoarseness, No sore throat, No Rhinorrhea, No Swallowing Difficulty Eyes: No Eye Pain, No Swelling, No Redness, No Vision Changes Cardiovascular: No Chest Pain, No SOB, No Edema, No Palpitations Respiratory: No Cough, No Sputum, No Dyspnea Gastrointestinal: No Nausea, No Vomiting, No Diarrhea, No Constipation, No Abdominal pain Genitourinary: +scrotal swelling, No Dysuria, No Urinary Frequency, No Hematuria, No Urinary Incontinence/retention, No Flank Pain Musculoskeletal: No joint pain, No Myalgias, No Joint Swelling Skin: No Skin Lesions, No rash Neuro: No Weakness, No Dizziness, No Headache Yes all other systems are reviewed and are negative Constitutional: Constitutional: Reports as per [facility] Past Medical History Attestation statement: The following information was validated with the patient. Source: old records reviewed Social History Social History Household Members: None Housing: Apartment Do you presently have visiting nurse or other home services: Yes Alcohol intake: never Patient Tobacco Use Status: Never used Tobacco Substance Use Type: Marijuana Physical Exam ED Vital Signs: Vital Signs - 24 hr 10/28/22 07:16 Temperature 98.6 F Pulse Rate 95 Respiratory Rate 20 Blood Pressure 128/59 L Pulse Oximetry 97 Oxygen Delivery Method Nasal Cannula BMI result Body Mass Index 61.7 Const General: cooperative, healthy appearing and no acute distress Orientation/consciousness: patient oriented x3 Limitations: no limitations HENMT Head: Yes normal to inspection and Yes atraumatic Ears: hearing grossly normal bilaterally General nose exam: Normal external nose present Face and sinus: Yes normal facial exam Eyes General: appearance normal, both eyes and all related structures EOM: EOMs intact bilaterally Neck Neck: Yes normal visual inspection and Yes no meningeal signs Resp Effort & Inspection: normal respiratory effort and no respiratory distress Auscultation: diminished lung sounds bilateral in the lower lung mcginn[place] Cardio Rate: regular rate Heart sounds: S1 normal heart sound present and S2 normal heart sound present GI Inspection: Yes normal to inspection Palpation (GI): Soft to palpation, nontender, no guarding and not rigid Other: No crepitus General: Yes no CVA tenderness Scrotum: erythematous diffuse and scrotal swelling bilateral Testes: no testicular tenderness Back/Spine/Pelvis Back: no CVA tenderness Skin Other: Appropriately healing wound to right heel without surrounding erythema, no drainage Rashes: no rashes Neuro General: patient oriented x3, tone normal and no meningeal signs Gait exam (Neuro): Normal gait present Extrem General: Yes normal to inspection Course Course Course Narrative: -no leukocytosis. ESR 48. Labs otherwise reassuring XR chest 1V IMPRESSION: Mild pulmonary edema. > no overt evidence of CHF, will give 40 mg of IV Lasix 1104--CT pelvis w IV con IMPRESSION: No definitive scrotal skin thickening identified by today's cross-sectional imaging. There is some high density material dependently within the scrotum which is nonspecific. Further evaluation can be obtained with follow-up scrotal ultrasound as clinically indicated. > will consult Urology, Dr. Perez > recommended hospitalist admission for IV antibiotics. Will admit to hospitalist for further management Medications Administered Generic Name Dose Route Start Last Admin Trade Name Freq PRN Reason Stop Dose Admin Enoxaparin Sodium 40 mg 10/28/22 13:30 10/28/22 14:03 Enoxaparin Sodium 40 Mg/0.4 Ml Syringe SUBCUT 40 mg Q24H SRIDHAR Administration Furosemide 40 mg 10/28/22 17:00 10/28/22 16:31 Furosemide 40 Mg Tablet PO 40 mg BID@0900,1700 SRIDHAR Administration Protocol Hydralazine HCl 25 mg 10/28/22 15:00 10/28/22 16:31 Hydralazine Hcl 25 Mg Tablet PO 25 mg TID [facility] Administration Protocol Piperacillin Sod/Tazobactam 100 mls @ 200 mls/hr 10/28/22 13:30 10/28/22 14:43 Sod 4.5 gm/ Sodium Chloride IV Infused Q6H SRIDHAR Infusion Insulin Human Lispro 0 unit 10/28/22 16:30 10/28/22 16:34 Insulin Lispro 100 Unit/Ml 3 Ml Vial SUBCUT 2 unit QIDACHS [facility] Administration Protocol Metformin HCl 850 mg 10/28/22 15:00 10/28/22 16:34 Metformin Hcl 850 Mg Tablet PO 850 mg TID [facility] Administration Sodium Chloride 3 ml 10/28/22 16:00 10/28/22 16:38 0.9 % Sodium Chloride Flush 3 Ml Syringe IVFLUSH Not Given QSHIFT SRIDHAR Discontinued Medications Generic Name Dose Route Start Last Admin Trade Name Freq PRN Reason Stop Dose Admin Furosemide 40 mg 10/28/22 11:05 10/28/22 11:57 Furosemide 40 Mg/4 Ml Vial IVPUSH 10/28/22 11:06 40 mg ONCE ONE Administration Protocol Levofloxacin 750 mg in 150 mls @ 100 mls/hr 10/28/22 07:37 10/28/22 10:29 Levaquin IV 10/28/22 09:06 Infused ONCE ONE Infusion Vancomycin HCl 2,000 mg in 500 mls @ 250 mls/hr 10/28/22 13:29 10/28/22 14:45 Vancomycin/Ns IV 10/28/22 15:28 250 mls/hr ONCE ONE Administration Iohexol 85 ml 10/28/22 09:46 10/28/22 09:47 Iohexol 350 Mg/Ml 100 Ml Infus..Btl IV 10/28/22 09:47 85 ml ONCE ONE Administration Medical Decision Making Medical Decision Making MDM Narrative: 67-year-old male with a past medical history of RITA on CPAP, COPD on 2 L NC baseline, DM, scrotal cellulitis currently being treated with Doxycycline and Keflex since 10/21/2022, presenting to the ED complaining of persistent/worsening scrotal swelling and erythema. On exam vital signs stable, NAD, nontoxic appearing, abdomen soft/nontender, diffuse scrotal swelling with erythema noted, no warmth. No lesions, drainage, fluctuance or crepitus. Concern for continued cellulitis vs ?Scrotal abscess vs UTI. Lower suspicion for Cuca's gangrene, appendicitis/diverticulitis or hernia Plan: Labs, lactic/blood cultures, UA, CT, IV Levaquin Please refer to course for remaining clinical decision making, interpretation of labs/imaging results, and discussions with consultants and/or family members. Differential Diagnosis Differential Diagnoses: The differential diagnosis associated with the presentation includes As above Admission/Observation Consideration of admission/observation: Escalation of care including admission/observation considered Consult Healthcare Provider Management of the patient was discussed with: Hospitalist and Parach[employer]er (urology Dr. Perez) Lab Data MDM Lab Attestation statement: I reviewed the patient's lab results. 10/28/22 08:21 10/28/22 08:15 Labs: Lab Results 10/28/22 10/28/22 10/28/22 Range/Units 08:13 08:13 08:15 WBC (4.8-10.8) X10*3/uL RBC (4.60-5.80) X10*6/uL Hgb (14.0-18.0) g/dl Hct (42.0-52.0) % MCV (80.0-98.0) fL MCH (27.0-33.0) pg MCHC (31.0-36.0) g/dl RDW (11.0-16.0) % Plt Count (160-400) X10*3/uL MPV (9.4-12.4) fL Immature Gran % (Auto) (0.0-0.4) % Neut % (Auto) (45-73) % Lymph % (Auto) (20-40) % [place] % (Auto) (2-11) % Eos % (Auto) (0-4) % Baso % (Auto) (0-2) % Lymph # (Auto) (1.2-4.9) X10*3/uL [place] # (Auto) (0.1-1.2) X10*3/uL Eos # (Auto) (0.0-0.4) X10*3/uL Baso # (Auto) (0.0-0.2) X10*3/uL Abs Immat Gran (auto) (0.00-0.03) X10*3/uL Absolute Neuts (auto) (2.0-8.3) x10*3/uL Absolute Nucleated RBC (0.0-0.012) X10*3/uL Nucleated RBC % (auto) (0.0-0.2) /100WBC ESR 48 H (0-15) MM/HR PT (10.0-13.1) SEC INR (0.9-1.1) Sodium 140 (135-145) mmol/L Potassium 4.6 (3.3-5.1) mmol/L Chloride 101 (96-108) mmol/L Carbon Dioxide 30 H (22-29) mmol/L Anion Gap 14 (12-20) BUN 23 H (9-16) mg/dL Creatinine 1.05 (0.5-1.4) mg/dL Estim Creat Clear Calc 110.7 Estimated GFR > 60 Random Glucose 140 H (60-115) mg/dL Lactic Acid (0.5-2.0) mmol/L Calcium 9.5 (8.4-10.2) mg/dL Magnesium 2.5 (1.6-2.6) mg/dL Total Bilirubin 0.7 (0.0-1.0) mg/dL Direct Bilirubin 0.2 (0.0-0.5) mg/dL AST 14 (5-37) U/L ALT 18 (0-40) U/L Alkaline Phosphatase 121 H (39-117) U/L B-Natriuretic Peptide 16 (<100) pg/mL Total Protein 8.3 H (6.5-8.0) g/dL Albumin 3.7 (3.5-5.0) g/dL 10/28/22 10/28/22 10/28/22 Range/Units 08:15 08:20 08:21 WBC 11.2 H (4.8-10.8) X10*3/uL RBC 5.46 (4.60-5.80) X10*6/uL Hgb 13.5 L (14.0-18.0) g/dl Hct 44.1 (42.0-52.0) % MCV 80.8 (80.0-98.0) fL MCH 24.7 L (27.0-33.0) pg MCHC 30.6 L (31.0-36.0) g/dl RDW 17.9 H (11.0-16.0) % Plt Count 330 (160-400) X10*3/uL MPV 9.1 L (9.4-12.4) fL Immature Gran % (Auto) 0.5 H (0.0-0.4) % Neut % (Auto) 78.9 H (45-73) % Lymph % (Auto) 13.5 L (20-40) % [place] % (Auto) 5.3 (2-11) % Eos % (Auto) 1.4 (0-4) % Baso % (Auto) 0.4 (0-2) % Lymph # (Auto) 1.5 (1.2-4.9) X10*3/uL [place] # (Auto) 0.6 (0.1-1.2) X10*3/uL Eos # (Auto) 0.2 (0.0-0.4) X10*3/uL Baso # (Auto) 0.0 (0.0-0.2) X10*3/uL Abs Immat Gran (auto) 0.06 H (0.00-0.03) X10*3/uL Absolute Neuts (auto) 8.9 H (2.0-8.3) x10*3/uL Absolute Nucleated RBC 0.000 (0.0-0.012) X10*3/uL Nucleated RBC % (auto) 0.0 (0.0-0.2) /100WBC ESR (0-15) MM/HR PT 11.9 (10.0-13.1) SEC INR 1.0 (0.9-1.1) Sodium (135-145) mmol/L Potassium (3.3-5.1) mmol/L Chloride (96-108) mmol/L Carbon Dioxide (22-29) mmol/L Anion Gap (12-20) BUN (9-16) mg/dL Creatinine (0.5-1.4) mg/dL Estim Creat Clear Calc Estimated GFR Random Glucose (60-115) mg/dL Lactic Acid 1.6 (0.5-2.0) mmol/L Calcium (8.4-10.2) mg/dL Magnesium (1.6-2.6) mg/dL Total Bilirubin (0.0-1.0) mg/dL Direct Bilirubin (0.0-0.5) mg/dL AST (5-37) U/L ALT (0-40) U/L Alkaline Phosphatase (39-117) U/L B-Natriuretic Peptide (<100) pg/mL Total Protein (6.5-8.0) g/dL Albumin (3.5-5.0) g/dL Radiology Impression Discussion of test interpretation with radiology: I have reviewed the radiologist's reading. External Record Review External record reviewed: Inpatient record, Office record, Outpatient record, Prior outpatient labs, Prior outpatient radiology, Primary care record and Outside ED record Tests considered The following testing was considered but not selected: As above repeat US Prescription Management I considered prescription management with: Pain Medication and Antibiotic Chronic Conditions Patient?s care impacted by: Other (COPD, RITA on CPAP) Discharge Plan Discharge Clinical Impression: Cellulitis of scrotum Patient Disposition: Admitted As Inpatient Interventions: Admission Worksheet (ED) Last Done: 10/28/22 15:25 Discharge Date/Time: 10/28/22 15:26
[2022-10-28] MEDS: levoFLOXacin/D5W 750 MG/150 ML PIGGYBACK 100 MG IV (08:31)
--- NOTE | 2022-10-28 08:42 | PC.NURSE ---
20 g IV inserted in RAC, meds given per order. pt resting quietly no apparent distress
[2022-10-28] MEDS: iohexoL 350 MG/ML 100 ML INFUS..BTL 85 ML IV (09:47)
[2022-10-28] MEDS: Furosemide 40 MG/4 ML VIAL IVPUSH (11:57)
--- NOTE | 2022-10-28 12:08 | PC.NURSE ---
pt given recliner for comfort. IV Lasix given as ordered. Pharmacy currently at bedside.
--- NOTE | 2022-10-28 12:28 | PHA.MEDREC ---
Pharmacy Consult ? Medication Reconciliation Pharmacy has completed the medication reconciliation. Spoke to patient to confirm meds.
--- NOTE | 2022-10-28 13:31 | PM.IMHP ---
History of Present Illness Date of Service: 10/28/22 Chief Complaint: scrotal cellulitis 67-year-old male with a past medical history of RITA on CPAP, COPD on 2 L NC baseline, DM, scrotal cellulitis currently being treated with Doxycycline and Keflex since 10/21/2022, presenting to the ED complaining of persistent/worsening scrotal swelling and erythema.? Reports compliance with previously prescribed antibiotics.? Patient was evaluated in our ED on 10/21 and 10/25 for similar symptoms, had labs, scrotal ultrasound, and CT scan.? States was instructed by his VNA to return to the ED for IV antibiotics.? Reports difficulty urinating secondary to swelling.? Pt states getting worse despite oral antibiotics. Will be admitted to general medical floor having failed outpatient therapies Review of Systems Review of Systems: Denies chest pain Denies shortness of breath Denies nausea vomiting diarrhea Denies fever chills PMFSH Social History Alcohol intake: never Smoked in Last 30 Days: No Use of substances other than those prescribed or required for medical reasons: No Advance Directives: No Meds Allergies Allergy/AdvReac Type Severity Reaction Status Date / Time ipratropium Allergy Unknown Unknown Verified 10/28/22 07:27 Active Medications: Current Medications Acetaminophen (Acetaminophen 325 Mg Tablet) 650 mg PO Q6H PRN PRN Reason: Pain, Mild (Pain Scale 1-3) Albuterol Sulfate (Albuterol Sulfate (0.083%) 2.5 Mg/3 Ml Vial.Neb) 2.5 mg INHALE Q6H PRN PRN Reason: Shortness Of Breath Or Wheezing Atorvastatin Calcium (Atorvastatin Calcium 40 Mg Tablet) 40 mg PO BEDTIME [facility] Diltiazem HCl (Diltiazem Hcl Cd 300 Mg Cap.Er.24h) 300 mg PO DAILY [facility]; Protocol Empagliflozin (Empagliflozin 10 Mg Tablet) 10 mg PO DAILY [facility] Enoxaparin Sodium (Enoxaparin Sodium 40 Mg/0.4 Ml Syringe) 40 mg SUBCUT Q24H [facility] Furosemide (Furosemide 40 Mg Tablet) 40 mg PO BID@0900,1700 [facility]; Protocol Glipizide (Glipizide Xl 10 Mg Tab.Er.24) 10 mg PO DAILY [facility] Hydralazine HCl (Hydralazine Hcl 25 Mg Tablet) 25 mg PO TID [facility]; Protocol Insulin Glargine (Insulin Glargine,Hum.Rec.Anlog 100 Unit/Ml 10 Ml Vial) 64 unit SUBCUT BID [facility] Magnesium Oxide (Magnesium Oxide 400 Mg Tablet) 400 mg PO DAILY [facility] Metformin HCl (Metformin Hcl 850 Mg Tablet) 850 mg PO TID [facility] Non-Formulary Medication (Pantoprazole) 40 mg PO DAILY@0630 [facility] Ondansetron HCl (Ondansetron Hcl 4 Mg/2 Ml Vial) 4 mg IVPUSH Q8H PRN PRN Reason: Nausea and Vomiting Pharmacy Consult (Consult Rx Perform Med Rec) 1 each MISCELLANE ONCE PRN PRN Reason: Consult order Pregabalin (Pregabalin 150 Mg Capsule) 150 mg PO BID [facility] Sitagliptin Phosphate (Sitagliptin Phosphate 25 Mg Tablet) 25 mg PO DAILY [facility] Sodium Chloride (0.9 % Sodium Chloride Flush 3 Ml Syringe) 3 ml IVFLUSH QSHIFT [facility] Valsartan (Valsartan 320 Mg Tablet) 320 mg PO DAILY [facility]; Protocol Home Medications Medication Instructions Recorded Confirmed Last Taken Type albuterol sulfate 2.5 mg/3 mL 2.5 mg inhalation Q6H PRN 04/12/21 10/28/22 Unknown History (0.083 %) solution for nebulization Shortness Of Breath Or Wheezing atorvastatin 40 mg tablet 40 mg PO BEDTIME 04/12/21 10/28/22 10/27/22 History blood sugar diagnostic (FreeStyle #10 ea 04/12/21 Unknown History Lite Strips) diltiazem HCl 300 mg 300 mg PO DAILY 04/12/21 10/28/22 10/28/22 09:00 History capsule,extended release 24 hr glipizide 10 mg tablet, extended 10 mg PO DAILY 04/12/21 10/28/22 10/28/22 09:00 History release 24 hr hydralazine 25 mg tablet 25 mg PO TID 04/12/21 10/28/22 10/28/22 09:00 History insulin aspart U-100 100 unit/mL 1 sliding scale dose subcut TIDAC 04/12/21 10/28/22 Unknown History (3 mL) subcutaneous pen (Novolog FlexPen U-100 Insulin aspart) insulin glargine 100 unit/mL (3 64 unit subcut BID 04/12/21 10/28/22 10/28/22 09:00 History mL) subcutaneous pen (Basaglar KwikPen U-100 Insulin) lancets 28 gauge (FreeStyle #100 ea 04/12/21 Unknown History Lancets) metformin 850 mg tablet 850 mg PO TID 04/12/21 10/28/22 10/28/22 09:00 History pantoprazole 40 mg tablet,delayed 40 mg PO DAILY@0630 04/12/21 10/28/22 10/28/22 06:30 History release pen needle, diabetic 31 gauge x #1,200 ea 04/12/21 Unknown History 09/12 (BD Ultra-Fine Short Pen Needle) pregabalin 150 mg capsule 150 mg PO BID 04/12/21 10/28/22 10/28/22 09:00 History valsartan 320 mg tablet 320 mg PO DAILY 04/12/21 10/28/22 10/28/22 09:00 History empagliflozin 10 mg tablet 10 mg PO DAILY 03/06/22 10/28/22 10/28/22 09:00 History (Jardiance) furosemide 40 mg tablet (Lasix) 40 mg PO BID@0900,1700 10/28/22 10/28/22 10/27/22 History magnesium oxide 400 mg PO DAILY 10/28/22 10/28/22 10/28/22 09:00 History sitagliptin phosphate 25 mg tablet 25 mg PO DAILY 10/28/22 10/28/22 10/28/22 09:00 History (Januvia) Physical Exam Vital Signs and Narrative: Vital Signs: Last Vital Signs Temp 98.6 F 10/28/22 07:16 Pulse 95 10/28/22 07:16 Resp 20 10/28/22 07:16 BP 128/59 L 10/28/22 07:16 Pulse Ox 97 10/28/22 07:16 O2 Del Method Nasal Cannula 10/28/22 07:16 Oxygen Flow Rate 2 10/28/22 07:16 BMI result Body Mass Index 61.7 Const: Other: Awake alert no acute distress Resp: Other: clear to auscultation bilaterally no rales rhonchi or wheezes Cardio: Other: no S4; positive S1-S2; no S3 murmurs rubs or gallops GI: Other: obese; positive bowel sounds : Other: softball size scrotum with erythema and edema Extrem: Other: no edema bilaterally Results Labs 10/28/22 08:21 10/28/22 08:15 Labs: Laboratory Results - last 24 hr 10/28/22 10/28/22 10/28/22 08:13 08:13 08:15 MCV MCH MCHC RDW Plt Count MPV Immature Gran % (Auto) Neut % (Auto) Lymph % (Auto) [place] % (Auto) Eos % (Auto) Baso % (Auto) Lymph # (Auto) [place] # (Auto) Eos # (Auto) Baso # (Auto) Abs Immat Gran (auto) Absolute Neuts (auto) Absolute Nucleated RBC Nucleated RBC % (auto) ESR 48 H PT INR Anion Gap 14 Estim Creat Clear Calc 110.7 Estimated GFR > 60 Random Glucose 140 H Lactic Acid Calcium 9.5 Magnesium 2.5 Total Bilirubin 0.7 Direct Bilirubin 0.2 AST 14 ALT 18 Alkaline Phosphatase 121 H B-Natriuretic Peptide 16 Total Protein 8.3 H Albumin 3.7 10/28/22 10/28/22 10/28/22 08:15 08:20 08:21 MCV 80.8 MCH 24.7 L MCHC 30.6 L RDW 17.9 H Plt Count 330 MPV 9.1 L Immature Gran % (Auto) 0.5 H Neut % (Auto) 78.9 H Lymph % (Auto) 13.5 L [place] % (Auto) 5.3 Eos % (Auto) 1.4 Baso % (Auto) 0.4 Lymph # (Auto) 1.5 [place] # (Auto) 0.6 Eos # (Auto) 0.2 Baso # (Auto) 0.0 Abs Immat Gran (auto) 0.06 H Absolute Neuts (auto) 8.9 H Absolute Nucleated RBC 0.000 Nucleated RBC % (auto) 0.0 ESR PT 11.9 INR 1.0 Anion Gap Estim Creat Clear Calc Estimated GFR Random Glucose Lactic Acid 1.6 Calcium Magnesium Total Bilirubin Direct Bilirubin AST ALT Alkaline Phosphatase B-Natriuretic Peptide Total Protein Albumin Imaging Radiologist's Impressions: Impressions Chest X-Ray 10/28/22 08:43 IMPRESSION: Mild pulmonary edema. Pelvis CT 10/28/22 10:00 IMPRESSION: No definitive scrotal skin thickening identified by today's cross-sectional imaging. There is some high density material dependently within the scrotum which is nonspecific. Further evaluation can be obtained with follow-up scrotal ultrasound as clinically indicated. Assessment and Plan (1) Cellulitis of scrotum: Status: Acute (2) Diabetes type 2, controlled: Status: Acute (3) Hypertension: Status: Acute (4) RITA treated with BiPAP: Status: Acute Plan 67-year-old male presents to the emergency room with persistent worsening scrotal swelling erythema. Was recently seen 10/21 in 10/25 for similar symptoms. Workup including coronal ultrasound and CT scan failed to demonstrate an abscess. He was discharged on Keflex and doxycycline. Returns today for worsening symptoms despite oral antibiotics 1. Scrotal cellulitis - CT with high density material dependent within the scrotum which is nonspecific. - Ultrasound if no improvement over the next 24-48 hours - vancomycin/Zosyn (1) - urological consultation 2.DMII -acceptable control on admitting labs -lispro correctional scale - adjust as indicated 3.HTN - acceptable control on current therapies - adjust as indicated 4. RITA on BiPAP - continue all nocturnal BiPAP 5.History of atrial fibrillation status post ablation - examined in sinus rhythm - EKG to verify full code Lovenox Patient requires at least 2 nights minimal of inpatient stay to treat scotal cellulitis that has failed outpatient therapies Time Spent With Patient Time: Total time managing care of this patient today ____ minutes. Quality Stroke Does the patient have a stroke diagnosis?: No VTE Prior VTE?: No VTE Risk Level:: Medical - moderate - high VTE Device Contraindication: Treatment Not Indicated VTE Drug Contraindication: N/A - Med Ordered
[2022-10-28] MEDS: Enoxaparin Sodium 40 MG/0.4 ML SYRINGE SUBCUT (14:03)
[2022-10-28] MEDS: Piperacillin Sodium/Tazobactam 4.5 GM in 0.9 % Sodium Chloride 100 ML IV ×2 (14:04→20:42)
--- NOTE | 2022-10-28 14:13 | MHC.EDTECH ---
Belonging list completed With patient. Walker, C-PAP, and O2 tank have a label/Wristband attached.
--- NOTE | 2022-10-28 15:12 | PC.NURSE ---
med given per order, report given to receiving RN.
[2022-10-28 15:33] VITALS: BP 132/59; PULSE 67; RESP 18; TEMP 35.9; O2SAT 96
[2022-10-28 16:13] VITALS: BMI 61.9
[2022-10-28] MEDS: hydrALAZINE HCl 25 MG TABLET PO ×2 (16:31→20:32)
[2022-10-28] MEDS: Furosemide 40 MG TABLET PO (16:31)
[2022-10-28] MEDS: metFORMIN HCl 850 MG TABLET PO ×2 (16:34→20:31)
[2022-10-28] MEDS: Insulin Lispro 100 UNIT/ML 3 ML VIAL SUBCUT ×2 (16:34→20:31)
--- NOTE | 2022-10-28 17:12 | PC.NURSE ---
Pt admitted to 364 from the ER, pt presented with complaints of increased swelling and redness of scrotum . pt has been being treated for scrotal swelling since 10/21 on PO antibiotics . Now being admitted for IV antibiotics .
[2022-10-28 19:31] VITALS: BP 128/69; PULSE 75; RESP 22; TEMP 36.3; O2SAT 96
[2022-10-28] MEDS: Insulin Glargine,Hum.rec.anlog 100 UNIT/ML 10 ML VIAL 64 UNIT SUBCUT (20:30)
[2022-10-28] MEDS: Pregabalin 150 MG CAPSULE PO (20:33)
[2022-10-28] MEDS: Atorvastatin Calcium 40 MG TABLET PO (20:33)
[2022-10-28] MEDS: 0.9 % Sodium Chloride Flush 3 ML SYRINGE IVFLUSH (20:42)
[2022-10-28 22:30] VITALS: PULSE 71; RESP 18; O2SAT 96
[2022-10-29] MEDS: Piperacillin Sodium/Tazobactam 4.5 GM in 0.9 % Sodium Chloride 100 ML IV ×4 (01:04→19:31)
[2022-10-29] MEDS: vancomycin HCL 1,000 MG in 0.9 % Sodium Chloride 250 ML 270 MG IV (02:55)
[2022-10-29 03:25] VITALS: BP 121/58; PULSE 54; RESP 18; TEMP 36.4; O2SAT 98
[2022-10-29] MEDS: Omeprazole 20 MG CAPSULE.DR PO (05:47)
[2022-10-29 07:15] LABS: MANUAL DIFF FLAG NO
[2022-10-29 07:27] LABS: Basophils Percent Auto 0.4 % (0-2); Eosinophils Absolute Auto 0.2 X10*3/uL (0.0-0.4); Eosinophils Percent Auto 1.7 % (0-4); Hematocrit 41.5 % (42.0-52.0); Hemoglobin 12.6 g/dl (14.0-18.0); Imm Gran Abs Auto 0.06 X10*3/uL (0.00-0.03); Imm Gran Pct Auto 0.6 % (0.0-0.4); Lymphocytes Absolute Auto 1.6 X10*3/uL (1.2-4.9); Lymphocytes Percent Auto 15.3 % (20-40); Mean Corpuscular HGB Conc 30.4 g/dl (31.0-36.0); Mean Corpuscular Hemoglobin 25.1 pg (27.0-33.0); Mean Corpuscular Volume 82.7 fL (80.0-98.0); Mean Platelet Volume 9.7 fL (9.4-12.4); Monocytes Absolute Auto 0.7 X10*3/uL (0.1-1.2); Monocytes Percent Auto 6.4 % (2-11); Neutrophils Percent Auto 75.6 % (45-73); Platelet Count 284 X10*3/uL (160-400); Red Blood Count 5.02 X10*6/uL (4.60-5.80); Red Cell Distribution Width 17.9 % (11.0-16.0); White Blood Count 10.6 X10*3/uL (4.8-10.8)
[2022-10-29 07:49] VITALS: BP 118/72; PULSE 68; RESP 16; TEMP 36.1; O2SAT 93
[2022-10-29 07:59] LABS: Alanine Aminotransferase 15 U/L (0-40); Albumin Level 3.4 g/dL (3.5-5.0); Alkaline Phosphatase 104 U/L (39-117); Anion Gap 16 (12-20); Aspartate Amino Transferase 14 U/L (5-37); Blood Urea Nitrogen 24 mg/dL (9-16); Calcium 9.3 mg/dL (8.4-10.2); Carbon Dioxide 25 mmol/L (22-29); Chloride 101 mmol/L (96-108); Estimated Glomerular Filt Rate > 60; Glucose Fasting 108 mg/dL (60-99); Potassium 4.2 mmol/L (3.3-5.1); Sodium 138 mmol/L (135-145); Total Protein 7.5 g/dL (6.5-8.0)
[2022-10-29] MEDS: dilTIAZem HCL CD 300 MG CAP.ER.24H PO (08:16)
[2022-10-29] MEDS: Insulin Glargine,Hum.rec.anlog 100 UNIT/ML 10 ML VIAL 64 UNIT SUBCUT ×2 (08:16→20:18)
[2022-10-29] MEDS: Valsartan 320 MG TABLET PO (08:16)
[2022-10-29] MEDS: Empagliflozin 10 MG TABLET PO (08:17)
[2022-10-29] MEDS: metFORMIN HCl 850 MG TABLET PO ×3 (08:17→20:14)
[2022-10-29] MEDS: hydrALAZINE HCl 25 MG TABLET PO ×3 (08:17→20:14)
[2022-10-29] MEDS: Furosemide 40 MG TABLET PO ×2 (08:17→16:59)
[2022-10-29] MEDS: Magnesium Oxide 400 MG TABLET PO (08:17)
[2022-10-29] MEDS: glipiZIDE XL 10 MG TAB.ER.24 PO (08:17)
[2022-10-29] MEDS: SITagliptin Phosphate 25 MG TABLET PO (08:17)
[2022-10-29] MEDS: Pregabalin 150 MG CAPSULE PO ×2 (08:17→20:14)
[2022-10-29] MEDS: 0.9 % Sodium Chloride Flush 3 ML SYRINGE IVFLUSH ×3 (08:19→20:13)
--- NOTE | 2022-10-29 11:02 | HO.PM.IMPN ---
Subjective Subjective Date of Service: 10/29/22 Interval History: notes improvement since starting antibiotic. Remains afebrile Review of Systems Denies chest pain Denies shortness of breath Denies nausea vomiting diarrhea Denies fever chills Physical Exam Vital Signs: Vital Signs: Last Vital Signs Temp 96.9 F 10/29/22 07:49 Pulse 68 10/29/22 07:49 Resp 16 10/29/22 07:49 BP 118/72 10/29/22 07:49 Pulse Ox 93 10/29/22 07:49 O2 Del Method Room Air 10/29/22 07:49 O2 Flow Rate 2 10/28/22 19:31 Oxygen Flow Rate 2 10/28/22 07:16 BMI result Body Mass Index 61.9 Const: Other: Awake alert no acute distress Resp: Other: clear to auscultation bilaterally no rales rhonchi or wheezes Cardio: Other: no S4; positive S1-S2; no S3 murmurs rubs or gallops GI: Other: obese; positive bowel sounds : Other: softball size scrotum with erythema and edema Extrem: Other: no edema bilaterally Objective Data Active Medications Acetaminophen (Acetaminophen 325 Mg Tablet) 650 mg PO Q6H PRN PRN Reason: Pain, Mild (Pain Scale 1-3) Albuterol Sulfate (Albuterol Sulfate (0.083%) 2.5 Mg/3 Ml Vial.Neb) 2.5 mg INHALE Q6H PRN PRN Reason: Shortness Of Breath Or Wheezing Atorvastatin Calcium (Atorvastatin Calcium 40 Mg Tablet) 40 mg PO BEDTIME [facility] Last Admin: 10/28/22 20:33 Dose: 40 mg Documented By: ISAIAH Dextrose (Dextrose 50 % 25 Gm/50 Ml Syringe) 25 gm IVPUSH Q15M PRN; Protocol PRN Reason: per Hypoglycemia Standing Ord. Diltiazem HCl (Diltiazem Hcl Cd 300 Mg Cap.Er.24h) 300 mg PO DAILY [facility]; Protocol Last Admin: 10/29/22 08:16 Dose: 300 mg Documented By: SUGAR Empagliflozin (Empagliflozin 10 Mg Tablet) 10 mg PO DAILY [facility] Last Admin: 10/29/22 08:17 Dose: 10 mg Documented By: SUGAR Enoxaparin Sodium (Enoxaparin Sodium 40 Mg/0.4 Ml Syringe) 40 mg SUBCUT Q24H [facility] Last Admin: 10/28/22 14:03 Dose: 40 mg Documented By: PATRIA Furosemide (Furosemide 40 Mg Tablet) 40 mg PO BID@0900,1700 [facility]; Protocol Last Admin: 10/29/22 08:17 Dose: 40 mg Documented By: SUGAR Glipizide (Glipizide Xl 10 Mg Tab.Er.24) 10 mg PO DAILY [facility] Last Admin: 10/29/22 08:17 Dose: 10 mg Documented By: SUGAR Glucose (Glucose Gel 15 Gm Gel..Gram.) 15 gm PO Q15M PRN; Protocol PRN Reason: per Hypoglycemia Standing Ord. Hydralazine HCl (Hydralazine Hcl 25 Mg Tablet) 25 mg PO TID [facility]; Protocol Last Admin: 10/29/22 08:17 Dose: 25 mg Documented By: SUGAR Piperacillin Sod/Tazobactam (Sod 4.5 gm/ Sodium Chloride) 100 mls @ 200 mls/hr IV Q6H [facility] Last Infusion: 10/29/22 08:58 Dose: 0 mls/hr Documented By: SUGAR Vancomycin HCl 1,000 mg/ (Sodium Chloride) 270 mls @ 270 mls/hr IV Q12H [facility] Last Infusion: 10/29/22 03:59 Dose: 0 mls/hr Documented By: ISAIAH Insulin Glargine (Insulin Glargine,Hum.Rec.Anlog 100 Unit/Ml 10 Ml Vial) 64 unit SUBCUT BID [facility] Last Admin: 10/29/22 08:16 Dose: 64 unit Documented By: SUGAR Insulin Human Lispro (Insulin Lispro 100 Unit/Ml 3 Ml Vial) 0 unit SUBCUT QIDACHS [facility]; Protocol Last Admin: 10/29/22 08:00 Dose: Not Given Documented By: SUGAR Non-Admin Reason: No Insulin Coverage Magnesium Oxide (Magnesium Oxide 400 Mg Tablet) 400 mg PO DAILY [facility] Last Admin: 10/29/22 08:17 Dose: 400 mg Documented By: SUGAR Metformin HCl (Metformin Hcl 850 Mg Tablet) 850 mg PO TID [facility] Last Admin: 10/29/22 08:17 Dose: 850 mg Documented By: SUGAR Omeprazole (Omeprazole 20 Mg Capsule.Dr) 20 mg PO DAILY@0630 [facility] Last Admin: 10/29/22 05:47 Dose: 20 mg Documented By: ISAIAH Ondansetron HCl (Ondansetron Hcl 4 Mg/2 Ml Vial) 4 mg IVPUSH Q8H PRN PRN Reason: Nausea and Vomiting Pharmacy Consult (Consult Rx Perform Med Rec) 1 each MISCELLANE ONCE PRN PRN Reason: Consult order Pharmacy Consult (Consult Rx Vancomycin Dosing) 1 each MISCELLANE DAILY PRN PRN Reason: Consult order Pregabalin (Pregabalin 150 Mg Capsule) 150 mg PO BID [facility] Last Admin: 10/29/22 08:17 Dose: 150 mg Documented By: SUGAR Sitagliptin Phosphate (Sitagliptin Phosphate 25 Mg Tablet) 25 mg PO DAILY [facility] Last Admin: 10/29/22 08:17 Dose: 25 mg Documented By: SUGAR Sodium Chloride (0.9 % Sodium Chloride Flush 3 Ml Syringe) 3 ml IVFLUSH QSHIFT [facility] Last Admin: 10/29/22 08:19 Dose: 3 ml Documented By: SUGAR Valsartan (Valsartan 320 Mg Tablet) 320 mg PO DAILY [facility]; Protocol Last Admin: 10/29/22 08:16 Dose: 320 mg Documented By: SUGAR Labs 10/29/22 06:25 10/29/22 06:25 Labs: Laboratory Results - last 24 hr 10/28/22 10/28/22 10/29/22 16:21 20:14 06:25 MCV 82.7 MCH 25.1 L MCHC 30.4 L RDW 17.9 H Plt Count 284 MPV 9.7 Immature Gran % (Auto) 0.6 H Neut % (Auto) 75.6 H Lymph % (Auto) 15.3 L [place] % (Auto) 6.4 Eos % (Auto) 1.7 Baso % (Auto) 0.4 Lymph # (Auto) 1.6 [place] # (Auto) 0.7 Eos # (Auto) 0.2 Baso # (Auto) 0.0 Abs Immat Gran (auto) 0.06 H Absolute Neuts (auto) 8.0 Absolute Nucleated RBC 0.000 Nucleated RBC % (auto) 0.0 Anion Gap Estim Creat Clear Calc Estimated GFR POC Glucose 165 H 183 H Fasting Glucose Calcium Total Bilirubin AST ALT Alkaline Phosphatase Total Protein Albumin 10/29/22 10/29/22 06:25 07:47 MCV MCH MCHC RDW Plt Count MPV Immature Gran % (Auto) Neut % (Auto) Lymph % (Auto) [place] % (Auto) Eos % (Auto) Baso % (Auto) Lymph # (Auto) [place] # (Auto) Eos # (Auto) Baso # (Auto) Abs Immat Gran (auto) Absolute Neuts (auto) Absolute Nucleated RBC Nucleated RBC % (auto) Anion Gap 16 Estim Creat Clear Calc 103.0 Estimated GFR > 60 POC Glucose 137 H Fasting Glucose 108 H Calcium 9.3 Total Bilirubin 1.0 AST 14 ALT 15 Alkaline Phosphatase 104 Total Protein 7.5 Albumin 3.4 L Microbiology Microbiology Results: Microbiology 10/28/22 08:15 Blood Culture - Preliminary Blood - Venous No growth after 24 hours. 10/28/22 08:13 Blood Culture - Preliminary Blood - Venous No growth after 24 hours. Assessment and Plan (1) Cellulitis of scrotum: Status: Acute (2) Diabetes type 2, controlled: Status: Acute (3) Hypertension: Status: Acute (4) RITA treated with BiPAP: Status: Acute Plan 67-year-old male presents to the emergency room with persistent worsening scrotal swelling erythema. Was recently seen 10/21 in 10/25 for similar symptoms. Workup including coronal ultrasound and CT scan failed to demonstrate an abscess. He was discharged on Keflex and doxycycline. Returns today for worsening symptoms despite oral antibiotics 1. Scrotal cellulitis - CT with high density material dependent within the scrotum which is nonspecific. - Ultrasound if no improvement over the next 24-48 hours - vancomycin/Zosyn (2) - urological consultation 2.DMII -acceptable control on admitting labs -lispro correctional scale -adjust as indicated 3.HTN - acceptable control on current therapies - adjust as indicated 4. RITA on BiPAP - continue nocturnal BiPAP 5.History of atrial fibrillation status post ablation - examined in sinus rhythm - EKG to verify full code Lovenox Patient requires at least 2 nights minimal of inpatient stay to treat scotal cellulitis that has failed outpatient therapies Time Spent With Patient Time: Total time managing care of this patient today ____ minutes. Quality Stroke Does the patient have a stroke diagnosis?: No VTE Prior VTE?: No VTE Risk Level:: Medical - moderate - high VTE Device Contraindication: Treatment Not Indicated VTE Drug Contraindication: N/A - Med Ordered
[2022-10-29] MEDS: Insulin Lispro 100 UNIT/ML 3 ML VIAL SUBCUT ×3 (11:37→22:00)
--- NOTE | 2022-10-29 11:46 | MHC.CM.PN ---
CM ATTEMPTED TO MEET WITH PT WHO WAS SLEEPING WITH CPAP/BiPAP ON AND DOES NOT RESPOND TO VERBAL STIMULI CM TO REVISIT
[2022-10-29 12:42] LABS: Vancomycin Random 12.6 mcg/mL (15-20)
[2022-10-29] MEDS: Enoxaparin Sodium 40 MG/0.4 ML SYRINGE SUBCUT (12:46)
--- NOTE | 2022-10-29 14:26 | PM.UROCN ---
History of Present Illness Consult details Consult date: 10/29/22 Narrative: 67-year-old male with a past medical history of RITA on CPAP, COPD on 2 L NC baseline, DM, scrotal cellulitis treated with Doxycycline and Keflex since 10/21/2022, presenting to the ED complaining of persistent/worsening scrotal swelling and erythema.? Reports compliance with previously prescribed antibiotics.? Patient was evaluated in our ED on 10/21 and 10/25 for similar symptoms, had labs, scrotal ultrasound, and CT scan.? ? Admitted for IV abx. CT pelvis, scrotal cellulitis with nonspecific dependent density WBC improving. Scrotal US today: diffuse scrotal wall wall thickening.; no evidence of abscess. Exam- B/L testes palp'd nontender, scrotal edema, no significant cellulitis Review of Systems Review of Systems: 10 point ROS negative other than stated in the [facility] Social History Social History Household Members: None Housing: Apartment Do you presently have visiting nurse or other home services: Yes Alcohol intake: never Patient Tobacco Use Status: Never used Tobacco Substance Use Type: Marijuana service: No Meds Allergies Allergy/AdvReac Type Severity Reaction Status Date / Time ipratropium Allergy Unknown Unknown Verified 10/28/22 07:27 Active Medications: Current Medications Acetaminophen (Acetaminophen 325 Mg Tablet) 650 mg PO Q6H PRN PRN Reason: Pain, Mild (Pain Scale 1-3) Albuterol Sulfate (Albuterol Sulfate (0.083%) 2.5 Mg/3 Ml Vial.Neb) 2.5 mg INHALE Q6H PRN PRN Reason: Shortness Of Breath Or Wheezing Atorvastatin Calcium (Atorvastatin Calcium 40 Mg Tablet) 40 mg PO BEDTIME [facility] Last Admin: 10/28/22 20:33 Dose: 40 mg Dextrose (Dextrose 50 % 25 Gm/50 Ml Syringe) 25 gm IVPUSH Q15M PRN; Protocol PRN Reason: per Hypoglycemia Standing Ord. Diltiazem HCl (Diltiazem Hcl Cd 300 Mg Cap.Er.24h) 300 mg PO DAILY [facility]; Protocol Last Admin: 10/29/22 08:16 Dose: 300 mg Empagliflozin (Empagliflozin 10 Mg Tablet) 10 mg PO DAILY [facility] Last Admin: 10/29/22 08:17 Dose: 10 mg Enoxaparin Sodium (Enoxaparin Sodium 40 Mg/0.4 Ml Syringe) 40 mg SUBCUT Q24H [facility] Last Admin: 10/29/22 12:46 Dose: 40 mg Furosemide (Furosemide 40 Mg Tablet) 40 mg PO BID@0900,1700 [facility]; Protocol Last Admin: 10/29/22 08:17 Dose: 40 mg Glipizide (Glipizide Xl 10 Mg Tab.Er.24) 10 mg PO DAILY [facility] Last Admin: 10/29/22 08:17 Dose: 10 mg Glucose (Glucose Gel 15 Gm Gel..Gram.) 15 gm PO Q15M PRN; Protocol PRN Reason: per Hypoglycemia Standing Ord. Hydralazine HCl (Hydralazine Hcl 25 Mg Tablet) 25 mg PO TID [facility]; Protocol Last Admin: 10/29/22 14:22 Dose: 25 mg Piperacillin Sod/Tazobactam (Sod 4.5 gm/ Sodium Chloride) 100 mls @ 200 mls/hr IV Q6H [facility] Last Infusion: 10/29/22 14:21 Dose: Infused Vancomycin HCl 1,250 mg/ (Sodium Chloride) 250 mls @ 166.667 mls/hr IV Q12H [facility] Last Admin: 10/29/22 14:22 Dose: 166.67 mls/hr Insulin Glargine (Insulin Glargine,Hum.Rec.Anlog 100 Unit/Ml 10 Ml Vial) 64 unit SUBCUT BID [facility] Last Admin: 10/29/22 08:16 Dose: 64 unit Insulin Human Lispro (Insulin Lispro 100 Unit/Ml 3 Ml Vial) 0 unit SUBCUT QIDACHS [facility]; Protocol Last Admin: 10/29/22 11:37 Dose: 2 unit Magnesium Oxide (Magnesium Oxide 400 Mg Tablet) 400 mg PO DAILY [facility] Last Admin: 10/29/22 08:17 Dose: 400 mg Metformin HCl (Metformin Hcl 850 Mg Tablet) 850 mg PO TID [facility] Last Admin: 10/29/22 14:22 Dose: 850 mg Omeprazole (Omeprazole 20 Mg Capsule.Dr) 20 mg PO DAILY@0630 [facility] Last Admin: 10/29/22 05:47 Dose: 20 mg Ondansetron HCl (Ondansetron Hcl 4 Mg/2 Ml Vial) 4 mg IVPUSH Q8H PRN PRN Reason: Nausea and Vomiting Pharmacy Consult (Consult Rx Perform Med Rec) 1 each MISCELLANE ONCE PRN PRN Reason: Consult order Pharmacy Consult (Consult Rx Vancomycin Dosing) 1 each MISCELLANE DAILY PRN PRN Reason: Consult order Pregabalin (Pregabalin 150 Mg Capsule) 150 mg PO BID [facility] Last Admin: 10/29/22 08:17 Dose: 150 mg Sitagliptin Phosphate (Sitagliptin Phosphate 25 Mg Tablet) 25 mg PO DAILY [facility] Last Admin: 10/29/22 08:17 Dose: 25 mg Sodium Chloride (0.9 % Sodium Chloride Flush 3 Ml Syringe) 3 ml IVFLUSH QSHIFT [facility] Last Admin: 10/29/22 08:19 Dose: 3 ml Valsartan (Valsartan 320 Mg Tablet) 320 mg PO DAILY [facility]; Protocol Last Admin: 10/29/22 08:16 Dose: 320 mg Home Medications Medication Instructions Recorded Confirmed Last Taken Type albuterol sulfate 2.5 mg/3 mL 2.5 mg inhalation Q6H PRN 04/12/21 10/28/22 Unknown History (0.083 %) solution for nebulization Shortness Of Breath Or Wheezing atorvastatin 40 mg tablet 40 mg PO BEDTIME 04/12/21 10/28/22 10/27/22 History blood sugar diagnostic (YanethStyle #10 ea 04/12/21 Unknown History Lite Strips) diltiazem HCl 300 mg 300 mg PO DAILY 04/12/21 10/28/22 10/28/22 09:00 History capsule,extended release 24 hr glipizide 10 mg tablet, extended 10 mg PO DAILY 04/12/21 10/28/22 10/28/22 09:00 History release 24 hr hydralazine 25 mg tablet 25 mg PO TID 04/12/21 10/28/22 10/28/22 09:00 History insulin aspart U-100 100 unit/mL 1 sliding scale dose subcut TIDAC 04/12/21 10/28/22 Unknown History (3 mL) subcutaneous pen (Novolog FlexPen U-100 Insulin aspart) insulin glargine 100 unit/mL (3 64 unit subcut BID 04/12/21 10/28/22 10/28/22 09:00 History mL) subcutaneous pen (Basaglar KwikPen U-100 Insulin) lancets 28 gauge (FreeStyle #100 ea 04/12/21 Unknown History Lancets) metformin 850 mg tablet 850 mg PO TID 04/12/21 10/28/22 10/28/22 09:00 History pantoprazole 40 mg tablet,delayed 40 mg PO DAILY@0630 04/12/21 10/28/22 10/28/22 06:30 History release pen needle, diabetic 31 gauge x #1,200 ea 04/12/21 Unknown History 09/12 (BD Ultra-Fine Short Pen Needle) pregabalin 150 mg capsule 150 mg PO BID 04/12/21 10/28/22 10/28/22 09:00 History valsartan 320 mg tablet 320 mg PO DAILY 04/12/21 10/28/22 10/28/22 09:00 History empagliflozin 10 mg tablet 10 mg PO DAILY 03/06/22 10/28/22 10/28/22 09:00 History (Jardiance) furosemide 40 mg tablet (Lasix) 40 mg PO BID@0900,1700 10/28/22 10/28/22 10/27/22 History magnesium oxide 400 mg PO DAILY 10/28/22 10/28/22 10/28/22 09:00 History sitagliptin phosphate 25 mg tablet 25 mg PO DAILY 10/28/22 10/28/22 10/28/22 09:00 History (Januvia) Physical Exam Vital Signs: Vital Signs: Last Vital Signs Temp 96.9 F 10/29/22 07:49 Pulse 68 10/29/22 07:49 Resp 16 10/29/22 07:49 BP 118/72 10/29/22 07:49 Pulse Ox 93 10/29/22 07:49 O2 Del Method Room Air 10/29/22 07:49 O2 Flow Rate 2 10/28/22 19:31 Oxygen Flow Rate 2 10/28/22 07:16 BMI result Body Mass Index 61.9 Const: General: no acute distress Nutritional Appearance: overweight (morbidly obese) Orientation/consciousness: patient oriented x3 HEENT: Head: Yes normocephalic and Yes atraumatic Eyes: Conjunctivae: conjunctivae normal Neck: Neck: Yes normal visual inspection Chest: Chest palpation & inspection: normal inspection of the chest Resp: Effort & Inspection: normal respiratory effort Cardio: Rate: regular rate GI: Inspection: Yes normal to inspection Palpation (GI): Soft to palpation : Penis: other (hidden/buried due to scrotal swelling) Scrotum: edematous (no significant cellulitis) Neuro: General: patient oriented x3 Psych: Appearance: grossly normal Affect: normal affect Results Labs 10/29/22 06:25 10/29/22 06:25 Labs: Abnormal lab results 10/28/22 10/28/22 10/29/22 Range/Units 16:21 20:14 06:25 Hgb 12.6 L (14.0-18.0) g/dl Hct 41.5 L (42.0-52.0) % MCH 25.1 L (27.0-33.0) pg MCHC 30.4 L (31.0-36.0) g/dl RDW 17.9 H (11.0-16.0) % Immature Gran % (Auto) 0.6 H (0.0-0.4) % Neut % (Auto) 75.6 H (45-73) % Lymph % (Auto) 15.3 L (20-40) % Abs Immat Gran (auto) 0.06 H (0.00-0.03) X10*3/uL BUN (9-16) mg/dL POC Glucose 165 H 183 H (60-115) mg/dL Fasting Glucose (60-99) mg/dL Albumin (3.5-5.0) g/dL Urine Glucose (UA) (Negative) mg/dL Random Vancomycin (15-20) mcg/mL 10/29/22 10/29/22 10/29/22 Range/Units 06:25 07:47 11:16 Hgb (14.0-18.0) g/dl Hct (42.0-52.0) % MCH (27.0-33.0) pg MCHC (31.0-36.0) g/dl RDW (11.0-16.0) % Immature Gran % (Auto) (0.0-0.4) % Neut % (Auto) (45-73) % Lymph % (Auto) (20-40) % Abs Immat Gran (auto) (0.00-0.03) X10*3/uL BUN 24 H (9-16) mg/dL POC Glucose 137 H 152 H (60-115) mg/dL Fasting Glucose 108 H (60-99) mg/dL Albumin 3.4 L (3.5-5.0) g/dL Urine Glucose (UA) (Negative) mg/dL Random Vancomycin (15-20) mcg/mL 10/29/22 10/29/22 Range/Units 11:35 12:14 Hgb (14.0-18.0) g/dl Hct (42.0-52.0) % MCH (27.0-33.0) pg MCHC (31.0-36.0) g/dl RDW (11.0-16.0) % Immature Gran % (Auto) (0.0-0.4) % Neut % (Auto) (45-73) % Lymph % (Auto) (20-40) % Abs Immat Gran (auto) (0.00-0.03) X10*3/uL BUN (9-16) mg/dL POC Glucose (60-115) mg/dL Fasting Glucose (60-99) mg/dL Albumin (3.5-5.0) g/dL Urine Glucose (UA) >=1000 H (Negative) mg/dL Random Vancomycin 12.6 L (15-20) mcg/mL Short CBC 10/29/22 Range/Units 06:25 WBC 10.6 (4.8-10.8) X10*3/uL Hgb 12.6 L (14.0-18.0) g/dl Hct 41.5 L (42.0-52.0) % Plt Count 284 (160-400) X10*3/uL BMP 10/29/22 06:25 Sodium 138 Potassium 4.2 Chloride 101 Carbon Dioxide 25 BUN 24 H Creatinine 1.13 Calcium 9.3 Liver Function 10/29/22 Range/Units 06:25 Total Bilirubin 1.0 (0.0-1.0) mg/dL AST 14 (5-37) U/L ALT 15 (0-40) U/L Alkaline Phosphatase 104 (39-117) U/L Albumin 3.4 L (3.5-5.0) g/dL Urine 10/29/22 Range/Units 11:35 Urine Color Yellow Urine Appearance Clear Urine pH 6.5 (5.0-9.0) Ur Specific [place] 1.025 (1.005-1.025) Urine Protein Negative (Neg-Trace) mg/dL Urine Glucose (UA) >=1000 H (Negative) mg/dL Imaging Additional studies: Date of Service: 10/29/22 Procedure(s): US scrotum Accession Number(s): [id number] cc: Balbina Telles MD~ EXAMINATION: US SCROTUM CLINICAL INFORMATION: Scrotal cellulitis.. COMPARISON: None available. TECHNIQUE: A sonogram of the scrotum was performed assessing galeana-scale appearance and color Doppler flow. Spectral Doppler analysis of the arterial and venous flow were performed in the testes bilaterally. FINDINGS: RIGHT: Right testicle measures 4.7 x 3.2 x 2.6 cm, volume 20.5 mL. No focal testicular parenchymal lesions are visualized. Spectral Doppler analysis of the arterial and venous flow is normal in the right testis. Right epididymal head is normal in size. Small epididymal head cysts measuring 0.4 x 0.4 x 0.6 cm. No right hydrocele or varicocele is seen. Right epididymal Doppler flow is normal. LEFT: Left testicle measures 4.7 x 3.1 x 3.1 cm, volume 23.5 mL. No focal testicular parenchymal lesions are visualized. Spectral Doppler analysis of the arterial and venous flow is normal in the left testis. Left epididymal head is normal in size. No left hydrocele or varicocele is seen. Left epididymal Doppler flow is normal. There is diffuse scrotal wall wall thickening. US/US scrotum IMPRESSION: Right epididymal cyst. ? Otherwise unremarkable ultrasound of the testes and epididymis with normal vascular flow. ? Diffuse scrotal wall thickening. Date of Service: 10/28/22 EXAMINATION: CT PELVIS WITH CONTRAST CLINICAL INFORMATION: Evaluate scrotum. Cellulitis.? COMPARISON: CT abdomen pelvis and scrotal ultrasound October 21, 2022? ? TECHNIQUE: Helical scanning was performed with submillimeter collimation through the pelvis with the use of oral contrast and during bolus intravenous injection of 85 mL of Omnipaque 350 intravenous contrast. Sagittal and coronal multiplanar 2-D reconstructions were obtained. Today's examination is significantly limited secondary to artifact from patient body habitus. This CT examination was performed using dose optimization techniques as appropriate, variously including the following: *Automated exposure control *Adjustment of mA and/or kV according to patient size (this includes techniques or standardized protocols for targeted exams where dose is matched to indication/reason for exam; i.e. extremities or head) *Use of iterative reconstruction technique DLP: 824 mGy-cm FINDINGS: The bladder is normal in appearance. The prostate gland is mildly enlarged measuring 5.3 cm in transverse dimension. Visualized loops of small and large bowel are normal in caliber. Normal appendix. No definitive scrotal skin thickening identified by today's cross-sectional imaging. There is some high density material dependently within the scrotum which is nonspecific. No acute osseous abnormality. IMPRESSION: No definitive scrotal skin thickening identified by today's cross-sectional imaging. There is some high density material dependently within the scrotum which is nonspecific. Further evaluation can be obtained with follow-up scrotal ultrasound as clinically indicated. ? Assessment and Plan (1) Cellulitis of scrotum: Status: Acute (2) Diabetes type 2, controlled: Status: Acute Plan Agree with IV Abx coverage Pt clinically improving CT finds c/w scrotal cellulitis 10/29--scrotal US - no abscess c/w clinical exam scrotal edema When stable can be discharged on PO abx for 10 more days Fu with me in outpt setting Time Spent With Patient Time: Total time managing care of this patient today ____ minutes. Procedures Date of Service Date of Service: 11/01/22
[2022-10-29 15:32] VITALS: BP 116/55; PULSE 66; RESP 20; TEMP 35.8; O2SAT 94
--- NOTE | 2022-10-29 16:27 | MHC.CM.PN ---
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
[2022-10-29 19:43] VITALS: BP 127/75; PULSE 71; RESP 20; TEMP 35.8; O2SAT 96
[2022-10-29] MEDS: Atorvastatin Calcium 40 MG TABLET PO (20:14)
[2022-10-30] MEDS: Piperacillin Sodium/Tazobactam 4.5 GM in 0.9 % Sodium Chloride 100 ML IV ×3 (01:06→12:48)
[2022-10-30 03:18] VITALS: BP 117/60; PULSE 56; RESP 20; O2SAT 91
[2022-10-30] MEDS: Omeprazole 20 MG CAPSULE.DR PO (05:58)
[2022-10-30 07:03] LABS: MANUAL DIFF FLAG NO
[2022-10-30 07:15] VITALS: BP 131/68; PULSE 70; RESP 22; TEMP 36.2; O2SAT 93
[2022-10-30 07:20] LABS: Basophils Absolute Auto 0.1 X10*3/uL (0.0-0.2); Basophils Percent Auto 0.5 % (0-2); Eosinophils Absolute Auto 0.2 X10*3/uL (0.0-0.4); Eosinophils Percent Auto 1.9 % (0-4); Hematocrit 45.2 % (42.0-52.0); Hemoglobin 13.9 g/dl (14.0-18.0); Imm Gran Abs Auto 0.05 X10*3/uL (0.00-0.03); Imm Gran Pct Auto 0.4 % (0.0-0.4); Lymphocytes Percent Auto 16.5 % (20-40); Mean Corpuscular HGB Conc 30.8 g/dl (31.0-36.0); Mean Corpuscular Hemoglobin 25.3 pg (27.0-33.0); Mean Corpuscular Volume 82.2 fL (80.0-98.0); Mean Platelet Volume 9.6 fL (9.4-12.4); Monocytes Absolute Auto 0.6 X10*3/uL (0.1-1.2); Monocytes Percent Auto 5.2 % (2-11); Neutrophils Percent Auto 75.5 % (45-73); Platelet Count 318 X10*3/uL (160-400); Red Cell Distribution Width 18.3 % (11.0-16.0); White Blood Count 11.9 X10*3/uL (4.8-10.8)
[2022-10-30 07:22] LABS: Alanine Aminotransferase 17 U/L (0-40); Albumin Level 3.7 g/dL (3.5-5.0); Alkaline Phosphatase 111 U/L (39-117); Anion Gap 18 (12-20); Aspartate Amino Transferase 17 U/L (5-37); Bilirubin Total 1.3 mg/dL (0.0-1.0); Blood Urea Nitrogen 23 mg/dL (9-16); Calcium 9.9 mg/dL (8.4-10.2); Carbon Dioxide 27 mmol/L (22-29); Chloride 98 mmol/L (96-108); Creatinine Clr Calc Pharmacy 98.6; Estimated Glomerular Filt Rate > 60; Glucose Fasting 140 mg/dL (60-99); Potassium 4.8 mmol/L (3.3-5.1); Sodium 138 mmol/L (135-145); Total Protein 8.3 g/dL (6.5-8.0)
[2022-10-30] MEDS: Magnesium Oxide 400 MG TABLET PO (09:07)
[2022-10-30] MEDS: Insulin Glargine,Hum.rec.anlog 100 UNIT/ML 10 ML VIAL 64 UNIT SUBCUT (09:07)
[2022-10-30] MEDS: hydrALAZINE HCl 25 MG TABLET PO ×2 (09:07→14:33)
[2022-10-30] MEDS: glipiZIDE XL 10 MG TAB.ER.24 PO (09:07)
[2022-10-30] MEDS: metFORMIN HCl 850 MG TABLET PO ×2 (09:08→14:33)
[2022-10-30] MEDS: Pregabalin 150 MG CAPSULE PO (09:08)
[2022-10-30] MEDS: Empagliflozin 10 MG TABLET PO (09:08)
[2022-10-30] MEDS: SITagliptin Phosphate 25 MG TABLET PO (09:08)
[2022-10-30] MEDS: Furosemide 40 MG TABLET PO (09:08)
[2022-10-30] MEDS: Valsartan 320 MG TABLET PO (09:08)
[2022-10-30] MEDS: dilTIAZem HCL CD 300 MG CAP.ER.24H PO (09:08)
[2022-10-30] MEDS: 0.9 % Sodium Chloride Flush 3 ML SYRINGE IVFLUSH (09:16)
[2022-10-30] MEDS: Insulin Lispro 100 UNIT/ML 3 ML VIAL SUBCUT (11:44)
[2022-10-30 12:14] LABS: Vancomycin Random 18.7 mcg/mL (15-20)
--- NOTE | 2022-10-30 12:28 | HE.PHANOTE ---
Vancomycin Dosing Level jumped to 18.7 today. Level is still expected to rise. Will decrease dose to vancomycin 1000 mg Q12H. New level in 24 hours on 10/31 @ 1200. Diego RamirezD
[2022-10-30] MEDS: Enoxaparin Sodium 40 MG/0.4 ML SYRINGE SUBCUT (12:49)
--- NOTE | 2022-10-30 13:59 | PM.DS ---
DS: Providers Provider Date of Service: 10/30/22 Date of admission: 10/28/22 13:17 Date of discharge: 10/30/22 Primary care physician: RUTHIE Key Consults: 10/28/22 13:42 Consult to Urology Routine Consulting Provider: Balbina Telles Reason for consultation: scrotal cellulitis Has provider been notified: No DS: Diagnosis Discharge Diagnosis (1) Cellulitis of scrotum: Status: Acute (2) Diabetes type 2, controlled: Status: Acute DS: Summary Hospital Course Hospital Course: 67-year-old male with a past medical history of RITA on CPAP, COPD on 2 L NC baseline, DM, scrotal cellulitis currently being treated with Doxycycline and Keflex since 10/21/2022, presenting to the ED complaining of persistent/worsening scrotal swelling and erythema.? Reports compliance with previously prescribed antibiotics.? Patient was evaluated in our ED on 10/21 and 10/25 for similar symptoms, had labs, scrotal ultrasound, and CT scan.? States was instructed by his V[facility] to return to the ED for IV antibiotics.? Reports difficulty urinating secondary to swelling.? Pt states getting worse despite oral antibiotics. Will be admitted to general medical floor having failed outpatient therapies Hospital Course patient admitted to general medical floor and started on broad-spectrum antibiotics including vancomycin and Zosyn. CT of the pelvis showed no definitive scrotal skin thickening however did show some high density material dependently in scrotum which was nonspecific. Seen in consultation by Urology. Scrotal ultrasound done results are pending at the time this dictation. Patient was seen by Urology on the day of discharge and by her exam she felt she was ready for discharge. He will be discharged to complete a course of oral Levaquin to follow-up with her in the office in 2 weeks Time Spent with Patient Time attestation: Total time managing care of this patient today ____ minutes. Discharge coordination time: Greater than 30 minutes Quality: Safe Use of Opioids Does Pt have an Active Cancer Diagnosis on the Problem List?: No Quality: Stroke Does the patient have a stroke diagnosis?: No Physical Exam Vital Signs: Vital Signs: Last Vital Signs Temp 97.2 F 10/30/22 07:15 Pulse 70 10/30/22 07:15 Resp 22 H 10/30/22 07:15 BP 131/68 10/30/22 07:15 Pulse Ox 93 10/30/22 07:15 O2 Del Method Room Air 10/30/22 07:15 O2 Flow Rate 2 10/29/22 19:43 Oxygen Flow Rate 2 10/28/22 07:16 BMI result Body Mass Index 61.9 Const: Other: Awake alert no acute distress Resp: Other: clear to auscultation bilaterally no rales rhonchi or wheezes Cardio: Other: no S4; positive S1-S2; no S3 murmurs rubs or gallops GI: Other: obese; positive bowel sounds : Other: softball size scrotum with improved erythema and edema Extrem: Other: no edema bilaterally DS: Data Data Completed and Pending Labs on day of discharge: Laboratory Results - last 24 hr 10/29/22 10/29/22 10/30/22 15:36 20:36 06:41 WBC 11.9 H RBC 5.50 Hgb 13.9 L Hct 45.2 MCV 82.2 MCH 25.3 L MCHC 30.8 L RDW 18.3 H Plt Count 318 MPV 9.6 Immature Gran % (Auto) 0.4 Neut % (Auto) 75.5 H Lymph % (Auto) 16.5 L [place] % (Auto) 5.2 Eos % (Auto) 1.9 Baso % (Auto) 0.5 Lymph # (Auto) 2.0 [place] # (Auto) 0.6 Eos # (Auto) 0.2 Baso # (Auto) 0.1 Abs Immat Gran (auto) 0.05 H Absolute Neuts (auto) 9.0 H Absolute Nucleated RBC 0.000 Nucleated RBC % (auto) 0.0 Sodium Potassium Chloride Carbon Dioxide Anion Gap BUN Creatinine Estim Creat Clear Calc Estimated GFR POC Glucose 165 H 151 H Fasting Glucose Calcium Total Bilirubin AST ALT Alkaline Phosphatase Total Protein Albumin Random Vancomycin 10/30/22 10/30/22 10/30/22 06:41 07:21 11:14 WBC RBC Hgb Hct MCV MCH MCHC RDW Plt Count MPV Immature Gran % (Auto) Neut % (Auto) Lymph % (Auto) [place] % (Auto) Eos % (Auto) Baso % (Auto) Lymph # (Auto) [place] # (Auto) Eos # (Auto) Baso # (Auto) Abs Immat Gran (auto) Absolute Neuts (auto) Absolute Nucleated RBC Nucleated RBC % (auto) Sodium 138 Potassium 4.8 Chloride 98 Carbon Dioxide 27 Anion Gap 18 BUN 23 H Creatinine 1.18 Estim Creat Clear Calc 98.6 Estimated GFR > 60 POC Glucose 139 H 192 H Fasting Glucose 140 H Calcium 9.9 D Total Bilirubin 1.3 H AST 17 ALT 17 Alkaline Phosphatase 111 Total Protein 8.3 H Albumin 3.7 Random Vancomycin 10/30/22 11:47 WBC RBC Hgb Hct MCV MCH MCHC RDW Plt Count MPV Immature Gran % (Auto) Neut % (Auto) Lymph % (Auto) [place] % (Auto) Eos % (Auto) Baso % (Auto) Lymph # (Auto) [place] # (Auto) Eos # (Auto) Baso # (Auto) Abs Immat Gran (auto) Absolute Neuts (auto) Absolute Nucleated RBC Nucleated RBC % (auto) Sodium Potassium Chloride Carbon Dioxide Anion Gap BUN Creatinine Estim Creat Clear Calc Estimated GFR POC Glucose Fasting Glucose Calcium Total Bilirubin AST ALT Alkaline Phosphatase Total Protein Albumin Random Vancomycin 18.7 Preliminary micro results at discharge 10/28/22 08:15 Blood Culture - Preliminary Blood - Venous No growth after 48 hours. 10/28/22 08:13 Blood Culture - Preliminary Blood - Venous No growth after 48 hours. Discharge Plan Discharge Anticipated Discharge Date/Time: 10/30/22 13:55 Patient Disposition: Home Health Service Discharge Diagnosis: scrotal cellulitis Referrals: Jm Roca PA [Primary Care Provider] - 1 Week Discharge Medications: New levofloxacin 500 mg tablet 500 mg PO DAILY 10 Days Qty: 10 0RF Continued Januvia 25 mg tablet 25 mg PO DAILY magnesium oxide 400 mg magnesium capsule 400 mg PO DAILY furosemide [Lasix] 40 mg tablet 40 mg PO BID@0900,1700 pantoprazole 40 mg tablet,delayed release (DR/EC) 40 mg PO DAILY@0630 Yaronagljimmy Cali U-100 Insulin 100 unit/mL (3 mL) insulin pen 64 unit subcut BID valsartan 320 mg tablet 320 mg PO DAILY pregabalin 150 mg capsule 150 mg PO BID glipizide 10 mg tablet extended release 24hr 10 mg PO DAILY (DME) lancets [FreeStyle Lancets] 28 gauge misc See Rx Instructions topical TID Qty: 100 Rx Instructions: As directed diltiazem HCl 300 mg capsule,extended release 24hr 300 mg PO DAILY (DME) FreeStyle Lite Strips Strip See Rx Instructions Not Applicable TID Qty: 10 Rx Instructions: As directed hydralazine 25 mg tablet 25 mg PO TID metformin 850 mg tablet 850 mg PO TID atorvastatin 40 mg tablet 40 mg PO BEDTIME insulin aspart U-100 [Novolog FlexPen U-100 Insulin] 100 unit/mL (3 mL) insulin pen 1 sliding scale dose subcut TIDAC (DME) pen needle, diabetic [BD Ultra-Fine Short Pen Needle] 31 gauge x 5/16 needle See Rx Instructions subcut .MEDSUPPLY Qty: 1200 Rx Instructions: As directed albuterol sulfate 2.5 mg /3 mL (0.083 %) solution for nebulization 2.5 mg inhalation Q6H PRN (Reason: Shortness Of Breath Or Wheezing) Jardiance 10 mg tablet 10 mg PO DAILY Discontinued doxycycline monohydrate 100 mg capsule 100 mg PO BID Qty: 20 0RF Rx Instructions: END DATE: 10/31/22 cephalexin 500 mg tablet 500 mg PO Q6H 10 Days Qty: 40 0RF Rx Instructions: END DATE: 11/03/22 Discharge Orders: Discharge Order (Routine); Ordered 10/30/22 Ordered By: Papo Davalos Diet: Advance to usual diet Activity on Discharge: As tolerated Stand Alone Forms: Patient Portal Discharge page Care Plan Goals: complete 10 days of Levaquin 500 mg daily Health Concerns: use a towel underneath the scrotum to keep elevated Plan of Treatment: follow-up with urology 2 weeks Assessment: see discharge summary
--- NOTE | 2022-10-30 14:49 | MHC.CM.PN ---
PT WILL DC HOME TODAY WITH RESUMPTION OF [employer] AND [employer] [facility] PT WILL ARRANGE TRANSPORT
== END 2022-10-30 14:45 | disposition home health service (06) | DRG 728 ==
LOC: HO.ED 11:45 → HO.EDOVER 13:29 → HO.S3 14:48
PROVIDERS: Admitting Provider Hospitalist; Emergency Provider Emergency Medicine Emergency Medical Services; PCP Physician Assistant Medical; Visit Provider Hospitalist
DX: N49.2 Inflammatory disorders of scrotum (principal); G47.33 Obstructive sleep apnea (adult) (pediatric); J44.9 Chronic obstructive pulmonary disease, unspecified; E11.9 Type 2 diabetes mellitus without complications; I10 Essential (primary) hypertension; Z79.4 Long term (current) use of insulin; Z79.899 Other long term (current) drug therapy
CPT/HCPCS: 36415; 71045; 72193; 76870; 80048; 80053; 80076; 80202; 81001; 82947; 83605; 83735; 83880; 85025; 85610; 85652; 86141; 87040; 94660; 99285; J1650; J1940; J1956; J2543; J3370; J3371; Q9967

== ENCOUNTER 2022-12-21 09:08 | Outpatient (AMB) | payer MEDICARE, MEDICAID, SELFPAY ==
--- NOTE | 2022-12-21 09:09 | A.OFFVIS_ITS ---
Intake Vital Signs 12/21/22 09:11 Height 5 ft 8 in Weight 399 lb 0.587 oz BMI 60.7 BP 122/77 Blood Pressure Location Rt brachial Position Sitting Pulse 84 Pulse Source Pulse Oximeter Pulse Oximetry (%) 96 Oxygen Delivery Method Room Air Intake Visit Reasons: COPD Allergies ipratropium Allergy (Unknown, Verified 12/21/22 09:17) Unknown HPI COPD HPI Details 67-year-old gentleman, former under 10 pack-year smoker in his teens, with underlying history of morbid obesity, followed for underlying severe RITA on BiPAP, 2 L supplemental oxygen dependent COPD, and dyspnea on exertion.? Patient continues on Breo and albuterol MDI with good control of his underlying symptoms. He continues on BiPAP with reasonable control of his nighttime symptoms. He denies any recent exacerbations. [facility] Medical History (Updated 12/21/22 @ 09:31 by Joaquim Bravo MD) Diabetes type 2, controlled Hypertension RITA treated with BiPAP Social History Household Members: None Housing: Apartment Do you presently have visiting nurse or other home services: Yes Alcohol intake: never Patient Tobacco Use Status: Never used Tobacco Substance Use Type: Marijuana service: No Review of Systems Const Denies daytime sleepiness, Denies excessive sweating, Denies fatigue, Denies fever(s), Denies lethargy, Denies malaise, Denies night sweats, Denies snoring and Denies weight loss Eyes Denies blurry vision and Denies itchy eyes ENT Denies nasal congestion, Denies post nasal drip, Denies sinus pain, Denies sinus pressure and Denies other ( Thrush) Card Denies chest pain, Denies pedal edema, Denies dyspnea, Denies orthopnea and Denies paroxysmal nocturnal dyspnea Resp Denies cough, Denies hemoptysis, Denies excessive phlegm production, Denies dyspnea, Denies snoring and Denies wheezing GI Denies abdominal pain and Denies heartburn Musc Denies myalgias, Denies arthralgias and Denies joint swelling Skin/Breast Denies rash Neuro Denies memory loss and Denies seizure-like activity Psych Denies abnormal sleep pattern, Denies anxiety and Denies memory loss Endo Denies excessive sweating, Denies fatigue and Denies heat intolerance Tereso/Lymph Denies easy bruising Aller/Immun Denies itchy eyes, Denies seasonal rhinorrhea and Denies wheezing Physical Exam Vital Signs: Last Vital Signs Pulse 84 12/21/22 09:11 BP 122/77 12/21/22 09:11 Pulse Ox 96 12/21/22 09:11 Oxygen Delivery Method Room Air 12/21/22 09:11 BMI result Body Mass Index 60.7 Const General: no acute distress and alert Nutritional Appearance: obese Orientation/consciousness: Other orientation findings ( oriented) HEENT Head: Yes atraumatic Eyes General: appearance normal, both eyes and all related structures Sclerae: sclerae normal EOM: EOMs intact bilaterally Neck Neck: Yes supple Lymphatic: no lymphadenopathy noted Resp Effort & Inspection: normal respiratory effort and no use of accessory muscles Auscultation: clear to auscultation bilaterally Cardio Rate: regular rate Rhythm: regular rhythm Heart sounds: no gallops, no murmurs and no rubs Skin General skin exam: other ( warm) Extrem General: No clubbing, No cyanosis and No edema Assessment & Plan Assessment & Plan (1) Severe chronic obstructive pulmonary disease: Code(s): J44.9 - Chronic obstructive pulmonary disease, unspecified Plan: Controlled current regimen Breo and albuterol MDI. Continue current regimen. Will obtain full PFT. (2) Supplemental oxygen dependent: Code(s): Z99.81 - Dependence on supplemental oxygen Plan: Continue supplemental oxygen to maintain O2 saturation of 88-93%. (3) Pulmonary nodules: Code(s): R91.8 - Other nonspecific abnormal finding of lung field Plan: Will obtain CT chest for further evaluation. (4) RITA treated with BiPAP: Code(s): G47.33 - Obstructive sleep apnea (adult) (pediatric) Plan: Well controlled on current BiPAP therapy. Continue BiPAP therapy. Orders: Orders CT chest wo IV con Today R91.8 - Other nonspecific abnormal finding of lung field PFT pulmonary function test Today J44.9 - Chronic obstructive pulmonary disease , unspecified Medications: New Ventolin HFA 90 mcg/actuation (albuterol sulfate) 2 puffs inhalation Q4-6H PRN 3 ea 4RF shortness of breath or wheezing 90 days NS Discontinued furosemide 40 mg PO BID 30 days 60 tabs 6RF Coding Level of Care Code Est Pt Level 4 (73368) Diagnoses Severe chronic obstructive pulmonary disease J44.9 Supplemental oxygen dependent Z99.81 Pulmonary nodules R91.8 RITA treated with BiPAP G47.33
[2022-12-21 09:11] VITALS: BP 122/77; PULSE 84; O2SAT 96; BMI 60.7
== END 2022-12-21 09:26 | disposition home or self-care (01) ==
PROVIDERS: PCP Physician Assistant Medical; Visit Provider Internal Medicine Pulmonary Disease
DX: J44.9 Chronic obstructive pulmonary disease, unspecified (principal); Z99.81 Dependence on supplemental oxygen; R91.8 Other nonspecific abnormal finding of lung field; G47.33 Obstructive sleep apnea (adult) (pediatric)
CPT/HCPCS: 99214

== ENCOUNTER → 2022-12-21 09:08 | Outpatient (BNVA) | payer MEDICARE, MEDICAID, SELFPAY | PROVIDERS: PCP Physician Assistant Medical; Visit Provider Internal Medicine Pulmonary Disease | DX: J44.9 Chronic obstructive pulmonary disease, unspecified (principal); G47.33 Obstructive sleep apnea (adult) (pediatric); R91.8 Other nonspecific abnormal finding of lung field; Z79.899 Other long term (current) drug therapy; Z99.81 Dependence on supplemental oxygen | CPT/HCPCS: 99212 ==

== ENCOUNTER 2023-02-19 09:17 | Outpatient (REF) | payer MEDICARE, MEDICAID, SELFPAY ==
--- NOTE | ~2023-02-19 | CT_ITS ---
EXAMINATION: CT CHEST WITHOUT CONTRAST CLINICAL INFORMATION: Abnormal lungs, COMPARISON: None TECHNIQUE: Multidetector volumetric CT imaging of the chest was done. Axial MIP volume rendering provided. Sagittal and coronal reformatted images were obtained. This CT examination was performed using dose optimization techniques as appropriate, variously including the following: *Automated exposure control *Adjustment of mA and/or kV according to patient size (this includes techniques or standardized protocols for targeted exams where dose is matched to indication/reason for exam; i.e. extremities or head) *Use of iterative reconstruction technique DLP: 91.8 mGy-cm FINDINGS: FIELD MACHINIST: Unremarkable LUNGS: Lungs are clear without nodules infiltrates or consolidation. MEDIASTINUM: The mediastinum is normal. CORONARY ARTERY CALCIFICATION: There are coronary artery calcifications present PLEURA: There is no pleural effusion. No pleural mass or thickening. AXILLA: No lymphadenopathy. UPPER ABDOMEN: Liver is of low attenuation due to hepatic steatosis with small approximately 0.7 cm low-attenuation lesion in the left foot the liver most likely cyst.. Visualized pancreas is fatty replaced. OSSEOUS STRUCTURES: Extensive changes of degenerative spondylosis in the thoracic spine CT/CT chest wo IV con IMPRESSION: 1. No lung nodules. 2. Coronary artery calcifications. 3. Hepatic steatosis and small cyst in the left lobe of the liver. 4. Degenerative spondylosis in the thoracic spine. Fleischner guidelines were followed.
--- NOTE | 2023-02-19 10:32 | PFT_ITS ---
INDICATIONS: COPD. SPIROMETRY: FEV1 to FVC of 54% with an FEV1 of 1.46 L, which is 116% predicted and an FVC of 2.69 L, which is 119% predicted. There was a significant response to bronchodilators noted. Maximum voluntary ventilation 32% predicted. LUNG VOLUMES: Total lung capacity 64% predicted. Expiratory residual volume of 49% predicted. DIFFUSION CAPACITY: DLCO 59% predicted. It does correct to 115% predicted when correcting for the alveolar volume. COMPARISONS: None. INTERPRETATION: There is an obstructive ventilatory defect, consistent of mild COPD. There was significant response to bronchodilators noted. There was also a severe decrease in the maximum voluntary ventilation secondary to deconditioning. The lungs volumes also demonstrate a restrictive ventilator defect consistent with mild restrictive lung disease. Likely due to an elevated BMI. The expiratory reserve volume is also significantly decreased due to the elevated BMI. The patient does have a moderate diffusion impairment, although it does correct to normal when we correct for the alveolar volume suggesting to some degree hypo expansion due to the elevated BMI. Clinical correlation warranted. MD DENG Godoy/[facility] / [id number]
== END 2023-02-19 09:18 | disposition home or self-care (01) ==
LOC: HO.RESP 09:17
PROVIDERS: PCP Internal Medicine; Visit Provider Internal Medicine Pulmonary Disease
DX: R91.8 Other nonspecific abnormal finding of lung field (principal); J44.9 Chronic obstructive pulmonary disease, unspecified
CPT/HCPCS: 71250; 94010; 94727; 94729

== ENCOUNTER → 2023-02-19 10:32 | Outpatient (BNV) | payer MEDICARE, MEDICAID, SELFPAY | PROVIDERS: PCP Internal Medicine; Visit Provider Hospitalist | DX: J44.9 Chronic obstructive pulmonary disease, unspecified (principal) | CPT/HCPCS: 94060; 94727; 94729 ==

== ENCOUNTER 2023-06-20 09:14 | Outpatient (AMB) | payer MEDICARE, MEDICAID, SELFPAY ==
--- NOTE | 2023-06-20 09:24 | A.OFFVIS_ITS ---
Intake Vital Signs 06/20/23 09:34 Height 5 ft 8 in Weight 390 lb 2.224 oz BMI 59.3 BP 124/72 Blood Pressure Location Rt brachial Position Sitting Pulse 63 Pulse Source Doppler Pulse Oximetry (%) 97 Oxygen Delivery Method Nasal Cannula Oxygen Flow Rate 2 Intake Visit Reasons: rita Allergies ipratropium Allergy (Unknown, Verified 06/20/23 09:37) Unknown HPI rita HPI Details 68-year-old gentleman, former under 10 p ack-year smoker in his teens, with underlying history of morbid obesity, followed for underlying severe RITA on BiPAP, 2 L supplemental oxygen dependent COPD, and dyspnea on exertion.? Patient states that Breo was not working well for him and now he is only using albuterol MDI and nebs with good control of his symptoms. He denies any recent exacerbations. His sleep apnea is well controlled on BiPAP. He is able to walk farther. [facility], [facility] Medical History (Updated 12/21/22 @ 09:31 by Joaquim Bravo MD) Hypertension Diabetes type 2, controlled RITA treated with BiPAP Social History Household Members: None Housing: Apartment Do you presently have visiting nurse or other home services: Yes Alcohol intake: never Comment: pt refused red socks Patient Tobacco Use Status: Never used Tobacco Substance Use Type: Marijuana service: No Review of Systems Const Denies daytime sleepiness, Denies excessive sweating, Denies fatigue, Denies fever(s), Denies lethargy, Denies malaise, Denies night sweats, Denies snoring and Denies weight loss Eyes Denies blurry vision and Denies itchy eyes ENT Denies nasal congestion, Denies post nasal drip, Denies sinus pain, Denies sinus pressure and Denies other ( Thrush) Card Denies chest pain, Denies pedal edema, Denies dyspnea, Denies orthopnea and Denies paroxysmal nocturnal dyspnea Resp Denies cough, Denies hemoptysis, Denies excessive phlegm production, Denies dyspnea, Denies snoring and Denies wheezing GI Denies abdominal pain and Denies heartburn Musc Denies myalgias, Denies arthralgias and Denies joint swelling Skin/Breast Denies rash Neuro Denies memory loss and Denies seizure-like activity Psych Denies abnormal sleep pattern, Denies anxiety and Denies memory loss Endo Denies excessive sweating, Denies fatigue and Denies heat intolerance Tereso/Lymph Denies easy bruising Aller/Immun Denies itchy eyes, Denies seasonal rhinorrhea and Denies wheezing Physical Exam Vital Signs: Last Vital Signs Pulse 63 06/20/23 09:34 BP 124/72 06/20/23 09:34 Pulse Ox 97 06/20/23 09:34 Oxygen Delivery Method Nasal Cannula 06/20/23 09:34 Oxygen Flow Rate 2 06/20/23 09:34 BMI result Body Mass Index 59.3 Const General: no acute distress and alert Nutritional Appearance: obese Orientation/consciousness: Other orientation findings ( oriented) HEENT Head: Yes atraumatic Eyes General: appearance normal, both eyes and all related structures Sclerae: sclerae normal EOM: EOMs intact bilaterally Neck Neck: Yes supple Lymphatic: no lymphadenopathy noted Resp Effort & Inspection: normal respiratory effort and no use of accessory muscles Auscultation: clear to auscultation bilaterally Cardio Rate: regular rate Rhythm: regular rhythm Heart sounds: no gallops, no murmurs and no rubs Skin General skin exam: other ( warm) Extrem General: No clubbing, No cyanosis and No edema Assessment & Plan Assessment & Plan (1) Severe chronic obstructive pulmonary disease: Code(s): J44.9 - Chronic obstructive pulmonary disease, unspecified Plan: Well controlled on albuterol MDI/nebs. Continue current regimen. (2) Supplemental oxygen dependent: Code(s): Z99.81 - Dependence on supplemental oxygen Plan: Continue supplemental oxygen to maintain O2 saturation of 88-92%. (3) RITA treated with BiPAP: Code(s): G47.33 - Obstructive sleep apnea (adult) (pediatric) Plan: Well controlled on current BiPAP therapy. Continue BiPAP therapy. Coding Level of Care Code Est Pt Level 4 (52104) Diagnoses Severe chronic obstructive pulmonary disease J44.9 Supplemental oxygen dependent Z99.81 RITA treated with BiPAP G47.33
[2023-06-20 09:34] VITALS: BP 124/72; PULSE 63; O2SAT 97; BMI 59.3
== END 2023-06-20 09:53 | disposition home or self-care (01) ==
PROVIDERS: PCP Physician Assistant Medical; Visit Provider Internal Medicine Pulmonary Disease
DX: J44.9 Chronic obstructive pulmonary disease, unspecified (principal); Z99.81 Dependence on supplemental oxygen; G47.33 Obstructive sleep apnea (adult) (pediatric)
CPT/HCPCS: 99214

== ENCOUNTER → 2023-06-20 09:14 | Outpatient (BNVA) | payer MEDICARE, MEDICAID, SELFPAY | PROVIDERS: PCP Physician Assistant Medical; Visit Provider Internal Medicine Pulmonary Disease | DX: J44.9 Chronic obstructive pulmonary disease, unspecified (principal); G47.33 Obstructive sleep apnea (adult) (pediatric); Z99.81 Dependence on supplemental oxygen | CPT/HCPCS: 99212 ==

== ENCOUNTER 2023-12-25 09:06 | Outpatient (AMB) | payer MEDICARE, MEDICAID, SELFPAY ==
[2023-12-25 09:16] VITALS: BP 100/62; PULSE 81; O2SAT 96; BMI 57.8
--- NOTE | 2023-12-25 09:16 | A.OFFVIS_ITS ---
Vital Signs 12/25/23 09:16 Height 5 ft 8 in Weight 380 lb 4.758 oz BMI 57.8 BP 100/62 Blood Pressure Location Rt brachial Position Sitting Pulse 81 Pulse Source Doppler Pulse Oximetry (%) 96 Oxygen Delivery Method Nasal Cannula Oxygen Flow Rate 2 Intake Visit Reasons: Obstructive sleep apnea Allergies ipratropium Allergy (Unknown, Verified 12/25/23 09:21) Unknown HPI HPI Obstructive sleep apnea: Details: 68-year-old gentleman, former under 10 pack-year smoker in his teens, with underlying history of morbid obesity, followed for underlying severe RITA on BiPAP, 2 L supplemental oxygen dependent COPD, and dyspnea on exertion.? He continues to use albuterol MDI/nebs with good control of his underlying asthma symptoms. He denies any recent exacerbations. [facility] Medical History (Updated 12/21/22 @ 09:31 by Joaquim Bravo MD) Hypertension Diabetes type 2, controlled RITA treated with BiPAP Social History Household Members: None Housing: Apartment Do you presently have visiting nurse or other home services: Yes Alcohol intake: never Comment: pt refused red socks Patient Tobacco Use Status: Never used Tobacco Substance Use Type: Marijuana service: No Review of Systems Const Denies daytime sleepiness, Denies excessive sweating, Denies fatigue, Denies fever(s), Denies lethargy, Denies malaise, Denies night sweats, Denies snoring and Denies weight loss Eyes Denies blurry vision and Denies itchy eyes ENT Denies nasal congestion, Denies post nasal drip, Denies sinus pain, Denies sinus pressure and Denies other ( Thrush) Card Denies chest pain, Denies pedal edema, Denies dyspnea, Denies orthopnea and Denies paroxysmal nocturnal dyspnea Resp Denies cough, Denies hemoptysis, Denies excessive phlegm production, Denies dyspnea, Denies snoring and Denies wheezing GI Denies abdominal pain and Denies heartburn Musc Denies myalgias, Denies arthralgias and Denies joint swelling Skin/Breast Denies rash Neuro Denies memory loss and Denies seizure-like activity Psych Denies abnormal sleep pattern, Denies anxiety and Denies memory loss Endo Denies excessive sweating, Denies fatigue and Denies heat intolerance Tereso/Lymph Denies easy bruising Aller/Immun Denies itchy eyes, Denies seasonal rhinorrhea and Denies wheezing Physical Exam Vital Signs: Last Vital Signs Pulse 81 12/25/23 09:16 BP 100/62 12/25/23 09:16 Pulse Ox 96 12/25/23 09:16 Oxygen Delivery Method Nasal Cannula 12/25/23 09:16 Oxygen Flow Rate 2 12/25/23 09:16 BMI result Body Mass Index 57.8 Const General: no acute distress and alert Nutritional Appearance: obese Orientation/consciousness: Other orientation findings ( oriented) HEENT Head: Yes atraumatic Eyes General: appearance normal, both eyes and all related structures Sclerae: sclerae normal EOM: EOMs intact bilaterally Neck Neck: Yes supple Lymphatic: no lymphadenopathy noted Resp Effort & Inspection: normal respiratory effort and no use of accessory muscles Auscultation: clear to auscultation bilaterally Cardio Rate: regular rate Rhythm: regular rhythm Heart sounds: no gallops, no murmurs and no rubs Skin General skin exam: other ( warm) Extrem General: No clubbing, No cyanosis and No edema Assessment & Plan Assessment & Plan (1) Severe chronic obstructive pulmonary disease: Code(s): J44.9 - Chronic obstructive pulmonary disease, unspecified Category: Medical Plan: Well controlled on current regimen of albuterol MDI/nebs. Continue current regimen. (2) Supplemental oxygen dependent: Code(s): Z99.81 - Dependence on supplemental oxygen Category: Medical Plan: Continue supplemental oxygen to maintain O2 saturation of 88-92%. (3) RITA treated with BiPAP: Code(s): G47.33 - Obstructive sleep apnea (adult) (pediatric) Category: Medical Plan: Symptoms well controlled current BiPAP therapy. Continue BiPAP therapy. Coding Level of Care Code Est Pt Level 4 (85609) Diagnoses Severe chronic obstructive pulmonary disease J44.9 Supplemental oxygen dependent Z99.81 RITA treated with BiPAP G47.33
== END 2023-12-25 09:35 | disposition home or self-care (01) ==
PROVIDERS: PCP Physician Assistant Medical; Visit Provider Internal Medicine Pulmonary Disease
DX: J44.9 Chronic obstructive pulmonary disease, unspecified (principal); Z99.81 Dependence on supplemental oxygen; G47.33 Obstructive sleep apnea (adult) (pediatric)
CPT/HCPCS: 99214

== ENCOUNTER → 2023-12-25 09:06 | Outpatient (BNVA) | payer MEDICARE, MEDICAID, SELFPAY | PROVIDERS: PCP Physician Assistant Medical; Visit Provider Internal Medicine Pulmonary Disease | DX: J44.9 Chronic obstructive pulmonary disease, unspecified (principal); G47.33 Obstructive sleep apnea (adult) (pediatric); E66.01 Morbid (severe) obesity due to excess calories; Z99.89 Dependence on other enabling machines and devices; Z99.81 Dependence on supplemental oxygen; Z87.891 Personal history of nicotine dependence; Z68.43 Body mass index [BMI] 50.0-59.9, adult | CPT/HCPCS: 99212 ==